=== PATIENT | female | born 1940 | race Two or more races ===

== ENCOUNTER 2016-11-13 21:10 | Inpatient (IN) | payer OTHER, MEDICAID ==
--- NOTE | 2016-11-13 21:35 | EDPHY ---
H & P Stated Complaint: FALL/WEAKNESS Time Seen by Provider: 11/13/16 21:35 HPI/ROS: CHIEF COMPLAINT: Fall, unable to get up HISTORY OF PRESENT ILLNESS: The patient presents to emergency department by paramedics. The patient reportedly had a fall at her home in the bathtub today. She was unable to get up. The patient eventually make contact with police who was able open the patient's apartment. She was too weak to transfer. 911 was contacted and she was brought to the ED. The patient complains of some mild headache. She does believe she struck her head. She denies neck pain. She denies any fever, cough, congestion, diarrhea, recent medication changes or other acute complaints. The patient has had a history of multiple falls over the past several weeks to months. The patient has had some evaluation of this condition by her primary care provider without an obvious etiology. REVIEW OF SYSTEMS: A comprehensive 10 point review of systems is otherwise negative aside from elements mentioned in the history of present illness. Source: Patient Exam Limitations: No limitations - Personal History Current Tetanus/Diphtheria Vaccine: Yes Current Tetanus Diphtheria and Acellular Pertussis (TDAP): Yes Tetanus Vaccine Date: 2009 - Medical/Surgical History Hx Asthma: No Hx Chronic Respiratory Disease: No Hx Diabetes: Yes Hx Cardiac Disease: No Hx Renal Disease: No Hx Cirrhosis: No Hx Alcoholism: No Hx HIV/AIDS: No Hx Splenectomy or Spleen Trauma: No Other PMH: Hyperthyroid, HTN, Tremors, Vertigo, Arthritis, HLD - Social History Smoking Status: Never smoked - Physical Exam Exam: General Appearance: Alert, no distress Head: Minimal occipital tenderness to palpation Eyes: Pupils equal, round, reactive ENT, Mouth: No hemotympanum, no oral trauma Neck: Nontender, trachea midline Respiratory: No chest wall tender, subcutaneous air, lungs clear bilaterally Cardiovascular: Regular rate and rhythm Abdomen: Abdomen is soft and nontender, pelvis stable Skin: No lacerations, No abrasion Back: No midline T/L/S pain Extremities: Nontender, full range of motion Neurological: A&Ox3, normal motor function, normal sensory exam Constitutional: Initial Vital Signs Temperature (C) 36.6 C 11/13/16 21:17 Heart Rate 82 11/13/16 21:17 Respiratory Rate 14 11/13/16 21:17 Blood Pressure 123/64 H 11/13/16 21:17 O2 Sat (%) 93 11/13/16 21:17 O2 Delivery Mode Room Air Allergies/Adverse Reactions: ciprofloxacin [From Cipro] Allergy (Severe, Verified 11/13/16 21:17) Rash ciprofloxacin HCl [From Cipro] Allergy (Severe, Verified 11/13/16 21:17) Rash Home Medications: Medication Instructions Recorded Amitriptyline HCl [Elavil 10 mg 20 mg PO HS 07/02/12 (RX)] Dexlansoprazole [Dexilant] 30 mg PO DAILY 07/02/12 Estropipate [Ogen 0.75 MG (RX)] 0.75 mg PO AD 07/02/12 Furosemide [Lasix 20 MG (RX)] 20 mg PO DAILY PRN 07/02/12 Gabapentin [Neurontin 300 MG (RX)] 300 mg PO HS 07/02/12 Levothyroxine [Synthroid 112 mcg 112 mcg PO DAILY06 07/02/12 (RX)] Losartan Potassium [Cozaar 25 mg 25 mg PO DAILY 07/02/12 (RX)] Audiovisual Aids Technician Completed 07-02-12 07/02/12 Propranolol HCl [Inderal 20mg (RX)] 20 mg PO HS 07/02/12 Simvastatin [Zocor 20 mg (RX)] 20 mg PO DAILY18 07/02/12 Solifenacin Succinate [Vesicare 5 5 mg PO DAILY8 07/02/12 MG (RX)] celeCOXIB [Celebrex (RX)] 200 mg PO DAILY 07/02/12 metFORMIN HCL [Glucophage 500 mg 500 mg PO BIDMEAL 07/02/12 (RX)] traMADol [Ultram 50 mg (RX)] 50 - 100 mg PO DAILY PRN 07/02/12 Herbals/Supplements -Info Only 1 each PO AD 07/04/12 Multivitamins [Multivitamin (OTC)] 1 each PO DAILY 07/04/12 [place]-3 Fatty Acids [Fish Oil 1000 1,000 mg PO DAILY 07/04/12 mg (OTC)] Medical Decision Making - Diagnostics EKG Interpretation: EKG: Complete interpretation has been separately recorded in the [facility] archive. Summary impression: Sinus rhythm, rate 80, nonspecific ST T wave changes noted. Imaging: Imaging Impressions Cervical Spine CT 11/13/16 22:23 Impression: 1. No acute fracture or soft tissue swelling. 2. If the patient has persistent pain or neurologic deficits, consider cervical spine MRI. Findings discussed with Emergency Department physician, Akhil Ocampo at 11/13/2016 22:50. Head CT 11/13/16 22:23 Impression: 1. No acute intracranial hemorrhage or fracture. 2. Subacute ischemic infarction of the right posterior temporal and parietal occipital lobes. Findings discussed with Emergency Department physician, Akhil Ocampo at 11/13/2016 22:52. Chest X-Ray 11/13/16 22:24 Impression: 1. Hypoventilation and airways disease. 2. Otherwise nothing acute. CT head without contrast: No evidence of intracranial hemorrhage noted, evidence of subacute right MCA infarct noted. CT cervical spine: Negative for acute fracture Chest x-ray AP: Images reviewed by myself, negative for acute fracture. ED Course/Re-evaluation: The patient presents to the ED with multiple episodes of falling. The patient denies any symptoms of focal numbness or weakness. Family reports if anything she seems to be weak in her right leg. The patient has had some workup done as an outpatient through the neurologist at [facility]. Today, the patient was taken for a stat CT scan of her head given her history of fall which demonstrates a subacute right MCA stroke. The patient has equal strength in her right left leg to my evaluation. She does have a very slight left facial droop. It is entirely unclear when the symptoms began. The patient is not a candidate for tPA based upon a number of reasons including her history of fall and head injury, as well as her unknown duration of the symptoms. The patient does have evidence of dehydration, there is no evidence of arrhythmia or obvious surgical injury. The patient will be admitted to the hospital for further evaluation of her falls , weakness and dehydration. I spoke with Dr. Camp who will admit the patient Differential Diagnosis: Differential diagnosis considered includes intracranial hemorrhage, skull fracture, stroke, TIA, metabolic abnormality, urinary tract infection - Data Points Laboratory Results: Laboratory Results 11/13/16 21:20 11/13/16 21:20 11/13/16 11/13/16 11/13/16 22: 21:25 21:20 WBC RBC Hgb Hct MCV MCH MCHC RDW Plt Count MPV Neut % (Auto) Lymph % (Auto) [place] % (Auto) Eos % (Auto) Baso % (Auto) Nucleat RBC Rel Count Absolute Neuts (auto) Absolute Lymphs (auto) Absolute Monos (auto) Absolute Eos (auto) Absolute Basos (auto) Absolute Nucleated RBC Immature Gran % Immature Gran # Sodium 137 mEq/L mEq/L (134-144) Potassium 4.1 mEq/L mEq/L (3.5-5.2) Chloride 106 mEq/L mEq/L (97-110) Carbon Dioxide 20 mEq/l L mEq/l (22-31) Anion Gap 11 mEq/L mEq/L (8-16) BUN 23 mg/dL mg/dL (7-23) Creatinine 0.8 mg/dL mg/dL (0.6-1.0) Estimated GFR > 60 Glucose 113 mg/dL H mg/dL (70-100) Calcium 9.2 mg/dL mg/dL (8.5-10.4) Creatine Kinase 758 IU/L H IU/L (0-156) CK-MB (CK-2) Fraction 3.95 ng/mL H ng/mL (0-3.19) CK-MB (CK-2) % 0.5 % % (0.0-4.0) Creatine Kinase Interp NEGATIVE (NEGATIVE) Urine Color YELLOW Urine Appearance HAZY Urine pH 5.0 (5.0-7.5) Ur Specific [place] 1.020 (1.002-1.030) Urine Protein 1+ H (NEGATIVE) Urine Ketones 2+ H (NEGATIVE) Urine Blood NEGATIVE (NEGATIVE) Urine Nitrate NEGATIVE (NEGATIVE) Urine Bilirubin NEGATIVE (NEGATIVE) Urine Urobilinogen NEGATIVE EU EU (0.2-1.0) Ur Leukocyte Esterase TRACE H (NEGATIVE) Urine RBC 1-3 /hpf /hpf (0-3) Urine WBC 25-50 /hpf H /hpf (0-3) Ur Epithelial Cells TRACE /lpf /lpf (NONE-1+) Urine Bacteria 1+ /hpf H /hpf (NONE SEEN) Urine Mucus 1+ /lpf /lpf (NONE-1+) Ur Culture Indicated? INDICATED H (NI) Urine Glucose NEGATIVE (NEGATIVE) 11/13/16 21:20 WBC 9.27 10^3/uL 10^3/uL (3.80-9.50) RBC 5.76 10^6/uL H 10^6/uL (4.18-5.33) Hgb 14.7 g/dL g/dL (12.6-16.3) Hct 45.1 % % (38.0-47.0) MCV 78.3 fL L fL (81.5-99.8) MCH 25.5 pg L pg (27.9-34.1) MCHC 32.6 g/dL g/dL (32.4-36.7) RDW 16.5 % H % (11.5-15.2) Plt Count 224 10^3/uL 10^3/uL (150-400) MPV 11.1 fL fL (8.7-11.7) Neut % (Auto) 78.1 % H % (39.3-74.2) Lymph % (Auto) 16.4 % % (15.0-45.0) [place] % (Auto) 4.9 % % (4.5-13.0) Eos % (Auto) 0.1 % L % (0.6-7.6) Baso % (Auto) 0.3 % % (0.3-1.7) Nucleat RBC Rel Count 0.0 % % (0.0-0.2) Absolute Neuts (auto) 7.24 10^3/uL H 10^3/uL (1.70-6.50) Absolute Lymphs (auto) 1.52 10^3/uL 10^3/uL (1.00-3.00) Absolute Monos (auto) 0.45 10^3/uL 10^3/uL (0.30-0.80) Absolute Eos (auto) 0.01 10^3/uL L 10^3/uL (0.03-0.40) Absolute Basos (auto) 0.03 10^3/uL 10^3/uL (0.02-0.10) Absolute Nucleated RBC 0.00 10^3/uL 10^3/uL (0-0.01) Immature Gran % 0.2 % % (0.0-1.1) Immature Gran # 0.02 10^3/uL 10^3/uL (0.00-0.10) Sodium Potassium Chloride Carbon Dioxide Anion Gap BUN Creatinine Estimated GFR Glucose Calcium Creatine Kinase CK-MB (CK-2) Fraction CK-MB (CK-2) % Creatine Kinase Interp Urine Color Urine Appearance Urine pH Ur Specific [place] Urine Protein Urine Ketones Urine Blood Urine Nitrate Urine Bilirubin Urine Urobilinogen Ur Leukocyte Esterase Urine RBC Urine WBC Ur Epithelial Cells Urine Bacteria Urine Mucus Ur Culture Indicated? Urine Glucose Medications Given: Discontinued Medications Sodium Chloride (Ns) 1,000 mls @ 0 mls/hr IV ONCE ONE PRN Reason: Wide Open Stop: 11/13/16 21:37 Last Admin: 11/13/16 21:55 Dose: 1,000 mls Sodium Chloride (Ns) 1,000 mls @ 0 mls/hr IV ONCE ONE PRN Reason: Wide Open Stop: 11/13/16 21:58 Last Admin: 11/13/16 22:28 Dose: 1,000 mls Departure - Departure Disposition: [facility] Inpatient Acute Clinical Impression: Arterial ischemic stroke, chronic, Dehydration, Urinary tract infection Referrals: Patient,NotPresent [Unknown] - As per Instructions
[2016-11-13] MEDS ORDERED: NS 1,000 ML IV ONE ×2 (21:36→21:57)
[2016-11-13 21:41] LABS: % IMMATURE GRANULYOCYTES 0.2 % (0.0-1.1); ABSOLUTE IMMATURE GRANULOCYTES 0.02 10^3/uL (0.00-0.10); ADD DIFF? NO; ADD MORPH? NO; ADD SCAN? NO; ATYPICAL LYMPHOCYTE FLAG 0 (0-99); FRAGMENT RBC FLAG 0 (0-99); HEMATOCRIT 45.1 % (38.0-47.0); HEMOGLOBIN 14.7 g/dL (12.6-16.3); LEFT SHIFT FLG 0 (0-99); LIPEMIA HEMOLYSIS FLAG 80 (0-99); MEAN CELL HEMOGLOBIN 25.5 pg (27.9-34.1); MEAN CELL HEMOGLOBIN CONCENTR. 32.6 g/dL (32.4-36.7); MEAN CELL VOLUME 78.3 fL (81.5-99.8); MEAN PLATELET VOLUME 11.1 fL (8.7-11.7); PLATELET CLUMPS FLAG 20 (0-99); PLATELET COUNT 224 10^3/uL (150-400); RED BLOOD CELL COUNT 5.76 10^6/uL (4.18-5.33); RED CELL DISTRIBUTION WIDTH 16.5 % (11.5-15.2)
[2016-11-13 21:51] LABS: ANION GAP 11 mEq/L (8-16); CALCIUM 9.2 mg/dL (8.5-10.4); CARBON DIOXIDE 20 mEq/l (22-31); CHLORIDE 106 mEq/L (97-110); CREATININE 0.8 mg/dL (0.6-1.0); GLOMERULAR FILTRATION RATE > 60; GLUCOSE 113 mg/dL (70-100); POTASSIUM 4.1 mEq/L (3.5-5.2); SODIUM 137 mEq/L (134-144)
--- NOTE | 2016-11-13 21:53 | CPEKG ---
Heart Rate: 153 RR Interval: 392 QRSD Interval: 208 QTC Interval: 0 P Ledbetter: 0 QRS Ledbetter: 156 EKG Severity - ABNORMAL ECG - EKG Impression: UNDETERMINED RHYTHM: REVIEW EKG Impression: NONSPECIFIC INTRAVENTRICULAR CONDUCTION DELAY Electronically Signed By: Akhil Ocampo 13-Nov-2016 23:07:03
[2016-11-13 22:30] LABS: COLOR YELLOW; LEUKOCYTE ESTERASE,URINE TRACE (NEGATIVE); NITRITE,URINE NEGATIVE (NEGATIVE)
[2016-11-13 22:40] LABS: BACTERIA 1+ /hpf (NONE SEEN); MUCUS 1+ /lpf (NONE-1+); WBC,URINE 25-50 /hpf (0-3)
[2016-11-13 22:56] LABS: CK-MB INTERPRETATION NEGATIVE (NEGATIVE)
[2016-11-13 22:57] LABS: CREATINE KINASE-MB FRACTION 3.95 ng/mL (0-3.19)
[2016-11-13] MEDS ORDERED: ONDANSETRON 4 MG/2 ML VIAL IVP PRN (23:39)
[2016-11-13] MEDS ORDERED: ONDANSETRON DISINTEGRATING 4 MG TAB PO PRN (23:39)
[2016-11-13] MEDS ORDERED: HYDROmorphONE/DILAUDID 1 MG/ML SYR IVP PRN (23:39)
[2016-11-13] MEDS ORDERED: IOPAMIDOL (ISOVUE 370) 100 ML BTL IV ONE (23:50)
--- NOTE | 2016-11-14 00:44 | PDGENHP ---
History and Physical - Chief Complaint fall - History of Present Illness Patient is a 76 year old female with hypertension, hyperlipidemia, pre-DM2, obesity, hypothyroidism and recent disequilibrium/vertigo of unclear etiology who present to the ED with fall and generalized weakness. Patient has been suffering from disequilibrium-type symptoms for the past several months, for which she has undergone an outpatient work up that has been largely unrevealing (per patient), she has been prescribed meclizine with little improvement. About 1 week ago, patient had an acute fall due to weakness, for which she did not come to the ED for further evaluation. She denies any residual weakness, numbness after that fall. This morning, the patient was in her shower when she reports she slipped on the soap in the tub and fell down. She denies LOC, but does report head trauma on the side of the tub. She was noted some L knee pain. After falling, she was unable to lift herself up due to weakness, trying unsuccessfully for several hours. She lives alone and had been yelling out for help, when a neighbor was able to hear her this evening and called the police. Patient denies any chest pain, palpitations or lightheadedness associated with the fall. When EMS arrived patient was lifted out of her bathtub and transported to the [facility] ED. On arrival to the ED, patient was afebrile and hemodynamically stable, saturating well on room air. Labs revealed largely normal CBC and BMP, mildly elevated CK. UA was positive for signs of infection. CT head was obtained and showed no acute intracranial hemorrhage, but there was evidence for subacute R parietal infarct of undetermined age. CXR was unremarkable and EKG showed normal sinus rhythm. History Information - Allergies/Home Medication List Allergies/Adverse Reactions: ciprofloxacin [From Cipro] Allergy (Severe, Verified 11/13/16 21:17) Rash ciprofloxacin HCl [From Cipro] Allergy (Severe, Verified 11/13/16 21:17) Rash Home Medications: Amitriptyline HCl [Elavil 10 mg (RX)] 20 mg PO HS 07/02/12 [Last Taken 07/08/12 19:00] Dexlansoprazole [Dexilant] 30 mg PO DAILY 07/02/12 [Last Taken 07/09/12 06:30] Estropipate [Ogen 0.75 MG (RX)] 0.75 mg PO AD 07/02/12 [Last Taken 07/09/12 06: 30] Furosemide [Lasix 20 MG (RX)] 20 mg PO DAILY PRN 07/02/12 [Last Taken 07/08/12 07:00] Gabapentin [Neurontin 300 MG (RX)] 300 mg PO HS 07/02/12 [Last Taken 07/08/12 19 :00] Levothyroxine [Synthroid 112 mcg (RX)] 112 mcg PO DAILY06 07/02/12 [Last Taken 07/09/12 06:30] Losartan Potassium [Cozaar 25 mg (RX)] 25 mg PO DAILY 07/02/12 [Last Taken 07/09 06:30] Fuller Brush Man Completed 07-02-12 07/02/12 [Last Taken Unknown] Propranolol HCl [Inderal 20mg (RX)] 20 mg PO HS 07/02/12 [Last Taken 07/08/12 19 :00] Simvastatin [Zocor 20 mg (RX)] 20 mg PO DAILY18 07/02/12 [Last Taken 07/08/12 19 :00] Solifenacin Succinate [Vesicare 5 MG (RX)] 5 mg PO DAILY8 07/02/12 [Last Taken 07/08/12 19:00] celeCOXIB [Celebrex (RX)] 200 mg PO DAILY 07/02/12 [Last Taken 07/09/12 06:30] metFORMIN HCL [Glucophage 500 mg (RX)] 500 mg PO BIDMEAL 07/02/12 [Last Taken 06:30] traMADol [Ultram 50 mg (RX)] 50 - 100 mg PO DAILY PRN 07/02/12 [Last Taken 07/09 06:30] Herbals/Supplements -Info Only 1 each PO AD 07/04/12 [Last Taken Unknown] Multivitamins [Multivitamin (OTC)] 1 each PO DAILY 07/04/12 [Last Taken 07:00] [place]-3 Fatty Acids [Fish Oil 1000 mg (OTC)] 1,000 mg PO DAILY 07/04/12 [Last Taken 06/30/12 07:00] I have personally reviewed and updated: family history, medical history, social history, surgical history - Past Medical History Additional medical history: hypertension. hyperlipidemia. hypothyroidism. GERD. resting tremor. vertigo. osteoarthritis. overactive bladder - Surgical History Additional surgical history: L hip replacement. R shoulder repair. bladder sling - Family History Additional family history: Brothers, father: CVAs. DM2, CAD - Social History Smoking Status: Never smoked Alcohol Use: None Drug Use: None Additional social history: Patient currently lives alone, walks independently. She has a son and multiple other family members in the area who are very involved in her care. Review of Systems ROS: 10pt was reviewed & negative except for what was stated in HPI & below Physical Exam Temp Pulse Resp BP Pulse Ox 36.8 C 85 18 154/80 H 93 11/13/16 23:14 11/13/16 23:14 11/13/16 23:14 11/13/16 23:14 11/13/16 23:14 Constitutional: no apparent distress, appears nourished, obese, uncomfortable Eyes: PERRL, anicteric sclera, EOMI Ears, Nose, Mouth, Throat: moist mucous membranes, hearing normal, ears appear normal, no oral mucosal ulcers Cardiovascular: regular rate and rhythym, no murmur, rub, or gallop, pulses symmetric bilaterally, No JVD, No edema Peripheral Pulses: 2+: dorsalis-pedis (R), dorsalis-pedis (L) Respiratory: no respiratory distress, no rales or rhonchi, clear to auscultation Gastrointestinal: normoactive bowel sounds, soft, non-tender abdomen, no palpable masses, No guarding, No rebound Genitourinary: no bladder fullness, no bladder tenderness Skin: warm, normal color, no rashes or abrasions, no fluctuance, no induration, No mottled Musculoskeletal: full muscle strength, no muscle tenderness, normal joint ROM, no joint effusions, generalized weakness (nonfocal) Neurologic: AAOx3, sensation intact bilaterally, CN II-XII Intact, No weakness, No numbness, No pronator drift, No facial droop Psychiatric: interacting appropriately, not anxious, not encephalopathic, thought process linear Lab Data & Imaging Review 11/13/16 21:20 11/13/16 21:20 WBC 9.27 10^3/uL (3.80-9.50) 11/13/16 21:20 RBC 5.76 10^6/uL (4.18-5.33) H 11/13/16 21:20 Hgb 14.7 g/dL (12.6-16.3) 11/13/16 21:20 Hct 45.1 % (38.0-47.0) 11/13/16 21:20 MCV 78.3 fL (81.5-99.8) L 11/13/16 21:20 MCH 25.5 pg (27.9-34.1) L 11/13/16 21:20 MCHC 32.6 g/dL (32.4-36.7) 11/13/16 21:20 RDW 16.5 % (11.5-15.2) H 11/13/16 21:20 Plt Count 224 10^3/uL (150-400) 11/13/16 21:20 MPV 11.1 fL (8.7-11.7) 11/13/16 21:20 Neut % (Auto) 78.1 % (39.3-74.2) H 11/13/16 21:20 Lymph % (Auto) 16.4 % (15.0-45.0) 11/13/16 21:20 [place] % (Auto) 4.9 % (4.5-13.0) 11/13/16 21:20 Eos % (Auto) 0.1 % (0.6-7.6) L 11/13/16 21:20 Baso % (Auto) 0.3 % (0.3-1.7) 11/13/16 21:20 Nucleat RBC Rel Count 0.0 % (0.0-0.2) 11/13/16 21:20 Absolute Neuts (auto) 7.24 10^3/uL (1.70-6.50) H 11/13/16 21:20 Absolute Lymphs (auto) 1.52 10^3/uL (1.00-3.00) 11/13/16 21:20 Absolute Monos (auto) 0.45 10^3/uL (0.30-0.80) 11/13/16 21:20 Absolute Eos (auto) 0.01 10^3/uL (0.03-0.40) L 11/13/16 21:20 Absolute Basos (auto) 0.03 10^3/uL (0.02-0.10) 11/13/16 21:20 Absolute Nucleated RBC 0.00 10^3/uL (0-0.01) 11/13/16 21:20 Immature Gran % 0.2 % (0.0-1.1) 11/13/16 21:20 Immature Gran # 0.02 10^3/uL (0.00-0.10) 11/13/16 21:20 Sodium 137 mEq/L (134-144) 11/13/16 21:20 Potassium 4.1 mEq/L (3.5-5.2) 11/13/16 21:20 Chloride 106 mEq/L (97-110) 11/13/16 21:20 Carbon Dioxide 20 mEq/l (22-31) L 11/13/16 21:20 Anion Gap 11 mEq/L (8-16) 11/13/16 21:20 BUN 23 mg/dL (7-23) 11/13/16 21:20 Creatinine 0.8 mg/dL (0.6-1.0) 11/13/16 21:20 Estimated GFR > 60 11/13/16 21:20 Glucose 113 mg/dL (70-100) H 11/13/16 21:20 Calcium 9.2 mg/dL (8.5-10.4) 11/13/16 21:20 Creatine Kinase 758 IU/L (0-156) H 11/13/16 21:25 CK-MB (CK-2) Fraction 3.95 ng/mL (0-3.19) H 11/13/16 21:25 CK-MB (CK-2) % 0.5 % (0.0-4.0) 11/13/16 21:25 Creatine Kinase Interp NEGATIVE (NEGATIVE) 11/13/16 21:25 Urine Color YELLOW 11/13/16 22:17 Urine Appearance HAZY 11/13/16 22:17 Urine pH 5.0 (5.0-7.5) 11/13/16 22:17 Ur Specific [place] 1.020 (1.002-1.030) 11/13/16 22:17 Urine Protein 1+ (NEGATIVE) H 11/13/16 22:17 Urine Ketones 2+ (NEGATIVE) H 11/13/16 22:17 Urine Blood NEGATIVE (NEGATIVE) 11/13/16 22:17 Urine Nitrate NEGATIVE (NEGATIVE) 11/13/16 22:17 Urine Bilirubin NEGATIVE (NEGATIVE) 11/13/16 22:17 Urine Urobilinogen NEGATIVE EU (0.2-1.0) 11/13/16 22:17 Ur Leukocyte Esterase TRACE (NEGATIVE) H 11/13/16 22:17 Urine RBC 1-3 /hpf (0-3) 11/13/16 22:17 Urine WBC 25-50 /hpf (0-3) H 11/13/16 22:17 Ur Epithelial Cells TRACE /lpf (NONE-1+) 11/13/16 22:17 Urine Bacteria 1+ /hpf (NONE SEEN) H 11/13/16 22:17 Urine Mucus 1+ /lpf (NONE-1+) 11/13/16 22:17 Ur Culture Indicated? INDICATED (NI) H 11/13/16 22:17 Urine Glucose NEGATIVE (NEGATIVE) 11/13/16 22:17 Visualized and Interpreted Chest x-ray results: Yes Chest X-Ray results: no infiltrate, normal Visualized and Interpreted imaging results: Yes Interpretation: CT head: subacute infarct in the R pariatal-occipital area; no acute hemorrhage or edema Visualized and Interpreted EKG results: Yes EKG Interpretation: Positive for: normal sinsus rhythm EKG additional interpertation: TWI in lateral leads Assessment & Plan Assessment: Patient is a 76 year old female with hypertension, hyperlipidemia, hypothyroidism who presents to the ED with recurrent falls, today falling in her bathtub and was unable to get up. ED evaluation reveals CT showing evidence of a subacute/chronic R cerebral infarct, as well as acute UTI. Plan: # fall Today's fall sounds to have been mechanical in nature, associated with generalized weakness. Weakness could be related to subacute infarct, uti. Will also rule out ACS, arrhythmia with serial troponins and EKGs. CT head and c- spine have ruled out acute fractures or hemorrhage. Labs show only mild CK elevation despite being down for > 7 hours. Patient also complaining of L knee pain, so will check x-ray. Will also obtain PT/OT evaluation prior to discharge. # subacute R parietal infarct CT findings are not acute in nature and patient does report that about 1 week ago she had an acute event of weakness that resulted in a fall. This could be the time of her cerebral event. On presentation today, patient is not a tPA candidate due to presenting outside window. Will check CT angio head/neck, TTE, monitor telemetry for arrhythmia and monitor neuro status. Will also obtain Neuro consult, check TSH, lipid panel. # UTI Patient does not meet SIRS/sepsis criteria, but UA is positive. Given L shift on cbc and patient's complaint of generalized weakness, will treat for UTI with ceftriaxone. # hypertension, hyperlipidemia BP stable on presentation. Will confirm and continue homemeds. # hypothyroidism Check TSH, cont home synthroid # pre-DM2 Hold metformin, check FS and cover with sliding scale as needed. # dispo: admit to the inpatient service for presumed > 2 [place] stay for stroke work up, treatment of UTI and fall symptoms # gen: cardiac diet DVT ppx: lovenox Full code
[2016-11-14] MEDS: oxyCODONE IR 5 MG TAB PO PRN ×2 (01:12→06:02)
[2016-11-14] MEDS: ACETAMINOPHEN 500 MG TAB PO PRN (01:12)
[2016-11-14 04:42] LABS: % IMMATURE GRANULYOCYTES 0.1 % (0.0-1.1); ABSOLUTE IMMATURE GRANULOCYTES 0.01 10^3/uL (0.00-0.10); ADD DIFF? NO; ADD MORPH? NO; ADD SCAN? NO; ATYPICAL LYMPHOCYTE FLAG 0 (0-99); FRAGMENT RBC FLAG 0 (0-99); HEMATOCRIT 40.5 % (38.0-47.0); HEMOGLOBIN 13.1 g/dL (12.6-16.3); LEFT SHIFT FLG 0 (0-99); LIPEMIA HEMOLYSIS FLAG 80 (0-99); MEAN CELL HEMOGLOBIN 25.8 pg (27.9-34.1); MEAN CELL HEMOGLOBIN CONCENTR. 32.3 g/dL (32.4-36.7); MEAN CELL VOLUME 79.9 fL (81.5-99.8); MEAN PLATELET VOLUME 10.8 fL (8.7-11.7); PLATELET CLUMPS FLAG 0 (0-99); PLATELET COUNT 180 10^3/uL (150-400); RED BLOOD CELL COUNT 5.07 10^6/uL (4.18-5.33); RED CELL DISTRIBUTION WIDTH 16.2 % (11.5-15.2)
[2016-11-14 04:59] LABS: ANION GAP 7 mEq/L (8-16); CALCIUM 8.2 mg/dL (8.5-10.4); CARBON DIOXIDE 21 mEq/l (22-31); CHLORIDE 107 mEq/L (97-110); CHOLESTEROL 149 mg/dL (140-220); CHOLESTEROL/HDL RATIO 3.82 RATIO (1.00-4.44); CREATININE 0.7 mg/dL (0.6-1.0); GLOMERULAR FILTRATION RATE > 60; GLUCOSE 102 mg/dL (70-100); HIGH DENSITY LIPOPROTEIN 39 mg/dL (40-85); LOW DENSITY LIPOPROTEIN 82 mg/dL (80-100); MAGNESIUM 1.7 mg/dL (1.6-2.3); NON-HIGH DENSITY LIPOPROTEIN 110 mg/dL (90-129); POTASSIUM 3.8 mEq/L (3.5-5.2); SODIUM 135 mEq/L (134-144); TRIGLYCERIDE 141 mg/dL (35-135); VERY LOW DENSITY LIPOPROTEINS 28 mg/dL (8-25)
[2016-11-14 05:07] LABS: APTT 31.9 SEC (23.0-38.0); INR 1.11 (0.83-1.16); PROTIME(PATIENT) 14.2 SEC (12.0-15.0)
[2016-11-14 05:10] LABS: TROPONIN I < 0.012 ng/mL (0-0.034)
[2016-11-14] MEDS ORDERED: PROTOCOL MAGNESIUM 1 DOSE IV PRN (05:33)
[2016-11-14] MEDS ORDERED: PROTOCOL POTASSIUM 1 DOSE MISC PRN (05:33)
[2016-11-14 05:43] LABS: CK-MB INTERPRETATION NEGATIVE (NEGATIVE)
[2016-11-14 05:44] LABS: CREATINE KINASE-MB FRACTION 4.37 ng/mL (0-3.19)
[2016-11-14] MEDS ORDERED: NS 1,000 ML IV SCH (05:45)
[2016-11-14] MEDS ORDERED: POTASSIUM CL 10 MEQ TAB PO ONE ×2 (07:35→10:00)
[2016-11-14] MEDS ORDERED: MAGNESIUM SULF 1 GM/DEXTROSE 100 ML IV ONE ×2 (07:36→10:00)
[2016-11-14] MEDS ORDERED: D50W 25 GM/50 ML SYR IVP PRN (07:51)
--- NOTE | 2016-11-14 08:52 | PDCONSULT ---
Service Or Work Dispatcher Note: HOSPITAL NEUROLOGY CONSULT REQUESTING: Kiara Ta DO REASON: stroke HPI: This is a 76-year-old right-handed woman with a history of hypertension, hyperlipidemia, impaired fasting glucose, obstructive sleep apnea on nightly CPAP who presented to our emergency department yesterday evening due to a fall with the inability to get up thereafter. Patient states that for the past 3-4 days she has been having unprovoked falls in her home. She states that she is normally able to ambulate independently without any assistive devices. She states that it felt like someone is pushing her abruptly from behind and she would fall. She did not have any major injury. On the day of presentation, the patient was in her bathroom taking a bath when she states she slipped and fell in the tub was unable to get up. She started screaming for help and eventually a neighbor heard her and summoned EMS to her residence. On arrival to our emergency department, the patient was not noted to have any focal deficit. A CT of the head was obtained which revealed a subacute infarct in the right temporoparietal region consistent with a subacute ischemic stroke in the superior division of the right MCA. She was not a thrombolytic/intervention candidate due to the presence of infarct already apparent on CT. Lab investigations revealed rhabdomyolysis and a urinalysis questionable for a urinary tract infection. She had a CT of the cervical spine which was negative. Patient denies any prior history of stroke or TIA. Patient denies any weakness, sensory loss, visual disturbance, speech/ language disturbance, headache. She has chronic vertigo. She denies any chest pain, palpitations or shortness of breath. ROS: As per the HPI, otherwise a complete 12 point ROS was performed and is negative ALLERGIES AND MEDS: As recorded in the EMR - reviewed and reconciled PFSH: As per the intake H&P by Dr. Ta from today EXAM: VS reviewed in EMR GEN: WDWN laying in NAD HEENT: NCAT, sclera anicteric, conjunctiva not injected, MMM, oropharynx clear, no scalp tenderness NECK: supple, nontender, no meningismus CV: RRR s1 s2 wo m/r/c/g. Carotid pulses 2+ wo bruit NEURO: NIHSS 5 (2 VF, 2 sensory, 1 inattention) MS: awake, alert, oriented to self, place, month, year, not specific date. Speech nondysarthric. No language disturbance. Follows commands. Some intermittent left-sided neglect when prompted to use the LUE. Recent/remote memory grossly intact. Mood euthymic. Good fund of knowledge. Dyspraxia when mimicking hand gestures L>R. CN: pupils 3mm round and reactive. Fundi with sharp discs. Left homonymous hemianopia. Primary gaze centered. Full ocular motility, though smooth pursuit with saccadic intrusion and motor impersistence. Left hemifacial sensory loss. Face symmetric. Hearing grossly intact to finger rub. Palatoglossal movements intact. Shoulder shrug and head turn strong. MOTOR: normal bulk/tone. No adventitial movements. Very subtle UMN pattern of weakness in LUE and left hip flexion/knee flexion. SENSORY: diminished sensation in LUE/LLE. Unable to differentiate extinction due to hemisensory loss. COORD: no ataxia FN/HS. Remigio labored. REFLEX: plantar extensor left, equivocal right. No clonus. Absent DTRs ( activating). GAIT: deferred to PT safety eval DATA REVIEW: Labs reviewed in EMR LDL 82 A1c pending TTE pending PERSONALLY INTERPRETED RESULTS AND DATA: CT head wo 11/13 - wedge shaped area of hypodensity consistent with cytotoxic edema/subacute ischemic stroke in the right posterior temporal and right parietal regions CTA head/neck 11/13 - no large vessel stenosis or occlusive disease. She does seem to have collateral flow in the area of infarct. IMPRESSION AND RECOMMENDATIONS: // SUBACUTE ISCHEMIC STROKE // HTN // HLD // IFG // MANDA // FALL WITH RHABDOMYOLYSIS Patient presents with 3-4 days new unprovoked falls in the setting a subacute right MCA stroke. She currently demonstrates deficits left homonymous hemianopia, left obed sensory loss, trace left-sided weakness and dyspraxia moreso on the left. This is consistent with her stroke localization on CT. Given the absence of large vessel disease in the right carotid system, this large RMCA stroke invokes a mechanism of more proximal embolization, that is, cardioembolism. She does seem to have decent collateral flow in the area of infarct on CTA, which may account for her degree of symptoms in comparison to infarct size. - MRI brain wo today - TTE with bubble study today - ASA 325mg daily - goal normotension - f/u HgA1c with goal normoglycemia and long-term A1c < 6.5 - restart higher intensity statin therapy for goal LDL < 70 once her rhabdomyolysis has resolved - CPAP at night for MANDA - hypoventilation/CO2 retention may cause worsening of symptoms (ie reverse [place] syndrome) - monitor on tele - may need 30d Holter vs Linq pending MRI result - PT/OT/CAR PARKER consults - stroke education - GI and DVT prophylaxis per primary team - will need STR at d/c given her deficits and prior functional status
--- NOTE | 2016-11-14 09:14 | CPEKG ---
Heart Rate: 71 RR Interval: 845 P-R Interval: 148 QRSD Interval: 86 QT Interval: 384 QTC Interval: 418 P [place]: 46 QRS [place]: 91 T Wave [place]: 153 EKG Severity - ABNORMAL ECG - EKG Impression: SINUS RHYTHM EKG Impression: RIGHT AXIS DEVIATION EKG Impression: NONSPECIFIC T ABNORMALITIES, ANT-LAT LEADS Electronically Signed By: Jesus Frazier 14-Nov-2016 15:29:25
[2016-11-14] MEDS: ASPIRIN EC 325 MG TAB PO SCH (10:11)
[2016-11-14] MEDS: ENOXAPARIN 40 MG/0.4 ML SYR SC SCH (10:11)
[2016-11-14] MEDS: INSULIN LISPRO 100 UNIT/ML SC SCH ×3 (10:14→19:48)
--- NOTE | 2016-11-14 10:49 | ECHO ---
[id number] + + [address] : : [place] [address] : : [phone] + + Adult Echocardiographic Report + ------+ :Name: SOHAIL FISH JStudy Date: 11/14/2016 09:38 AM : : Hospital Admission Number: [id number] : :: 1940 Gender: Female Height: 65 in : :Age: 76 yrs Race: [facility] Weight: 18 3 lb : :Reason For Study: Ischemic stroke : : BSA: 1.9 m eters2: + ------+ MMode/2D Measurements \T\ Calculations LVIDd: 4.5 cm EDV(Teich): 94.7 ml Ao root diam: 3.2 cm LA dimension: 3.6 cm Normal Measurement Values: + + :LVIDd (3.5-5.7cm) IVSd (0.6-1.1cm) LVPWd (0.6-1.1cm) Aortic Root (2.0-3.7cm)Left Atrium (1.5-4.0cm): :LV Vol(d) (76-115ml) LV Vol(s) (29-48ml) Ejec Fraction (50-65%)PV Shan (0.6- 1.2m/s) TV Shan (0.4-1.0m/s) : :MV E Shan (0.8-1.0m/s)MV A Shan (0.3-1.0m/s)LVOT Shan (0.7-1.2m/s) Asc Ao Shan ( 0.9-1.8m/s) : + + Doppler Measurements \T\ Calculations Ao V2 max: 116.7 cm/sec Ao max P.5 mmHg Left Ventricle The left ventricle is normal in size. There is mild concentric left ventricular hypertrophy. Left ventricular systolic function is normal. Ejection Fraction = 70-75%. No regional wall motion abnormalities noted. Right Ventricle The right ventricle is normal in size and function. Atria The left atrial size is normal. Right atrial size is normal. The interatrial septum is intact with no evidence for an atrial septal defect. Mitral Valve The mitral valve is normal in structure and function. There is no evidence of mitral valve prolapse. There is no mitral valve stenosis. There is trace mitral regurgitation. Tricuspid Valve Normal tricuspid valve. Aortic Valve The aortic valve opens well. There is no aortic stenosis. There is no aortic insufficiency. Pulmonic Valve The pulmonic valve is not well visualized. There is no pulmonic valvular regurgitation. Great Vessels The aortic root is normal size. Pericardium/Pleural There is no pericardial effusion. There is a fat pad seen. Conclusion A complete two-dimensional transthoracic echocardiogram was performed (2D, M-mode, Doppler and color flow Doppler). The study was technically difficult. Left ventricular systolic function is normal. There is mild concentric left ventricular hypertrophy. Ejection Fraction = 70-75%. There is trace mitral regurgitation. There is a fat pad seen. Final Reading Physician: Ryley Bustos signed on 11/14/2016 10:48 AM Performed By: Lisbeth Wilder RDCS
[2016-11-14 10:59] LABS: HEMOGLOBIN A1C 6.1 % (4.0-6.0)
[2016-11-14] MEDS ORDERED: FUROSEMIDE 20 MG TAB PO PRN (12:49)
--- NOTE | 2016-11-14 16:28 | HOSPPROG ---
Hospitalist Progress Note Assessment/Plan: 76 yo F with PMH of htn, hld, pre dm pw fall and dysequilibrium for several weeks in setting of uti and subacute cva # subacute cva: on personal review of head CT subacute infarct in parietal and temporal right sided, not tpa candidate given timing, CTA head and neck performed showing small m2 thrombus, brain MRI pending. Has a family hx of a fib , monitoring on tele, echo unremarkable, neuro following. Cardioembolic source very possible, will need holter after dc. Full dose asa for now. PT/OT involved # UTI: treating with ctx for now, preliminary culture c/w likely e coli, will transition to oral abx when s/s available # weakness/dysequilibrium: in setting of above as well as generalized deconditioning. Discussed with family who will take her home with them for the time being. Again pt/ot involved, home health at dc # hld: given cva, will switch from low dose simvastatin to atorvastatin 40, LDL 82 # htn: well conrolled, continue lasix, losartan # dm: with A1c of 6.1, well controlled on current regimen # dispo: IP status, will need > 48 hours stay for eval/mgmt of above Patient new to my care. Old records reviewed and summarized as above. Care plan reviewed with family present at bedside. Subjective: no significant overnight events, patient currently feeling well, she is somnolent Objective: Vital Signs Temp Pulse Resp BP Pulse Ox 36.8 C 76 20 140/74 H 94 11/14/16 16:05 11/14/16 16:05 11/14/16 16:05 11/14/16 16:05 11/14/16 16:05 Laboratory Results 11/14/16 04:30 11/14/16 04:30 11/13/16 11/14/16 11/15/16 05:59 05:59 05:59 Intake Total 2000 Output Total 850 550 Balance 1150 -550 PT 14.2 SEC (12.0-15.0) 11/14/16 04:30 INR 1.11 (0.83-1.16) 11/14/16 04:30 awake alert nad anicteric op clear rrr no mrg cta soft nt nd no cce warm dry well perfused somnolent arousable oriented appropriate ICD10 Worksheet Patient Problems: Problems Problem Status Onset Arterial ischemic stroke, chronic Acute Dehydration Acute Urinary tract infection Acute
[2016-11-14 19:03] LABS: POTASSIUM 4.3 mEq/L (3.5-5.2)
[2016-11-14] MEDS ORDERED: PRAVASTATIN SODIUM 20 MG TAB PO SCH (21:00)
[2016-11-14] MEDS: traMADol 50 MG TAB PO PRN (21:16)
[2016-11-14] MEDS: AMITRIPTYLINE HCL 10 MG TAB PO SCH (21:16)
[2016-11-14] MEDS: PROPRANOLOL HCL 20 MG TAB PO SCH (21:17)
[2016-11-15] MEDS: LEVOTHYROXINE 112 MCG TAB PO SCH (05:48)
[2016-11-15] MEDS: traMADol 50 MG TAB PO PRN (05:48)
[2016-11-15 06:22] LABS: MAGNESIUM 2.1 mg/dL (1.6-2.3); POTASSIUM 4.1 mEq/L (3.5-5.2)
[2016-11-15] MEDS: INSULIN LISPRO 100 UNIT/ML SC SCH ×3 (07:58→17:48)
[2016-11-15] MEDS: ATORVASTATIN CALCIUM 40 MG TAB PO SCH (08:28)
[2016-11-15] MEDS: ASPIRIN EC 325 MG TAB PO SCH (08:28)
[2016-11-15] MEDS: LOSARTAN POTASSIUM 25 MG TAB PO SCH (08:28)
[2016-11-15] MEDS: ESTRADIOL 1 MG TAB PO SCH (08:28)
[2016-11-15] MEDS: DOCUSATE SODIUM 100 MG CAP PO SCH (08:28)
[2016-11-15] MEDS: OXYBUTYNIN 5 MG EXT REL TAB PO SCH (08:29)
[2016-11-15] MEDS: ENOXAPARIN 40 MG/0.4 ML SYR SC SCH (08:29)
[2016-11-15] MEDS: PANTOPRAZOLE SODIUM 40 MG TAB PO SCH (08:29)
[2016-11-15] MEDS ORDERED: MECLIZINE HCL 12.5 MG TAB PO SCH (09:00)
[2016-11-15] MEDS ORDERED: NON-FORMULARY NEW DRUG (Omeprazole [Prilosec 20 Mg] 40 MG) PO SCH (09:00)
[2016-11-15] MEDS: ACETAMINOPHEN 500 MG TAB PO PRN (11:53)
[2016-11-15] MEDS: oxyCODONE IR 5 MG TAB PO PRN (11:54)
--- NOTE | 2016-11-15 13:05 | HOSPPROG ---
Hospitalist Progress Note Assessment/Plan: 76 yo F with PMH of htn, hld, pre dm pw fall and dysequilibrium for several weeks in setting of uti and subacute cva # subacute cva: on personal review of head CT subacute infarct in parietal and temporal right sided, not tpa candidate given timing, CTA head and neck performed showing small m2 thrombus, brain MRI showing same without any other findings. Echo unremarkable, no events on tele thus far. For now tx with full dose asa, will need to dc with holter monitor. # UTI: barton sensitive e coli on culture, will transition to keflex with a plan to continue x 10 days for presumed complicated uti # acute encephalopathy: with significant somnolence and confusion initially that has now resolved, likely initial encephalopathy due to combination of cva/ uti and medication effect (was given meclizine yesterday which was a home med she had discontinued) # weakness/dysequilibrium: in setting of above as well as generalized deconditioning. Improving, will continue pt/ot and dc to snf # hld: given cva, will switch from low dose simvastatin to atorvastatin 40, LDL 82 # htn: well conrolled, continue lasix, losartan # dm: with A1c of 6.1, well controlled on current regimen # dispo: IP status, will need > 48 hours stay for eval/mgmt of above Care plan reviewed with family present at bedside. Reviewed care plan with CM. Subjective: no significant overnight events, patient much more alert today, feels that she is more steady on her feet Objective: Vital Signs Temp Pulse Resp BP Pulse Ox 37.0 C 66 13 123/71 H 94 11/15/16 11:41 11/15/16 11:41 11/15/16 11:41 11/15/16 11:41 11/15/16 11:41 Laboratory Results 11/14/16 04:30 11/15/16 05:05 11/14/16 11/15/16 11/16/16 05:59 05:59 05:59 Intake Total 2000 1500 90 Output Total 850 1000 150 Balance 1150 500 -60 PT 14.2 SEC (12.0-15.0) 11/14/16 04:30 INR 1.11 (0.83-1.16) 11/14/16 04:30 awake alert nad anicteric op clear rrr no mrg cta b soft nt nd no cce warm dry well perfused oriented appropriate ICD10 Worksheet Patient Problems: Problems Problem Status Onset Arterial ischemic stroke, chronic Acute Dehydration Acute Urinary tract infection Acute
[2016-11-15] MEDS: LIDOCAINE 5% 1 EA PATCH TD SCH (13:29)
[2016-11-15] MEDS: CEPHALEXIN 250 MG CAP PO SCH (17:48)
[2016-11-15 19:07] LABS: POTASSIUM 4.3 mEq/L (3.5-5.2)
[2016-11-15] MEDS ORDERED: PATCH REMOVAL 1 EA PATCH TD SCH (21:00)
[2016-11-15] MEDS: AMITRIPTYLINE HCL 10 MG TAB PO SCH (21:46)
[2016-11-15] MEDS: PROPRANOLOL HCL 20 MG TAB PO SCH (21:46)
[2016-11-16] MEDS: CEPHALEXIN 250 MG CAP PO SCH ×3 (00:04→12:13)
[2016-11-16] MEDS: LEVOTHYROXINE 112 MCG TAB PO SCH (05:11)
[2016-11-16 07:48] VITALS: RESP 16
[2016-11-16] MEDS: INSULIN LISPRO 100 UNIT/ML SC SCH ×2 (07:58→11:59)
[2016-11-16] MEDS: ATORVASTATIN CALCIUM 40 MG TAB PO SCH (08:08)
[2016-11-16] MEDS: DOCUSATE SODIUM 100 MG CAP PO SCH (08:08)
[2016-11-16] MEDS: LOSARTAN POTASSIUM 25 MG TAB PO SCH (08:08)
[2016-11-16] MEDS: PANTOPRAZOLE SODIUM 40 MG TAB PO SCH (08:08)
[2016-11-16] MEDS: OXYBUTYNIN 5 MG EXT REL TAB PO SCH (08:08)
[2016-11-16] MEDS: ASPIRIN EC 325 MG TAB PO SCH (08:09)
[2016-11-16] MEDS: ENOXAPARIN 40 MG/0.4 ML SYR SC SCH (08:09)
[2016-11-16] MEDS: LIDOCAINE 5% 1 EA PATCH TD SCH (08:09)
[2016-11-16] MEDS: ESTRADIOL 1 MG TAB PO SCH (08:09)
[2016-11-16] MEDS: traMADol 50 MG TAB PO PRN (08:15)
--- NOTE | 2016-11-16 11:06 | PDIAF ---
- Diagnosis Code Status: Full Code - Medication Management Discharge Medications: Medications to Continue on Transfer Amitriptyline HCl [Elavil 10 mg (*)] 20 mg PO HS 07/02/12 [Last Taken 07/08/12 19:00] Estradiol [Estradiol 1 MG (*)] 0.5 mg PO DAILY 07/02/12 [Last Taken Unknown] Furosemide [Lasix 20 MG (*)] 20 mg PO DAILY PRN 07/02/12 [Last Taken 07/08/12 07 :00] Levothyroxine [Synthroid 112 mcg (*)] 112 mcg PO DAILY06 07/02/12 [Last Taken 06:30] Losartan Potassium [Cozaar 25 mg (*)] 25 mg PO DAILY 07/02/12 [Last Taken 06:30] Propranolol HCl [Inderal 20mg (*)] 20 mg PO HS 07/02/12 [Last Taken 07/08/12 19: 00] metFORMIN HCL [Glucophage 500 mg (*)] 500 mg PO BIDMEAL 07/02/12 [Last Taken 05/08 06:30] traMADol [Ultram 50 mg (*)] 50 - 100 mg PO DAILY PRN 07/02/12 [Last Taken 06:30] Docusate Sodium [Colace 100 MG (*)] 100 mg PO DAILY 11/14/16 [Last Taken Unknown ] Omeprazole [Prilosec 20 mg] 40 mg PO DAILY 11/14/16 [Last Taken Unknown] Oxybutynin Chloride Xl [Ditropan Xl 5mg (*)] 5 mg PO DAILY 11/14/16 [Last Taken Unknown] Acetaminophen [Tylenol ES 500 mg (*)] 500 - 1,000 mg PO Q6HRS PRN #0 tab [Last Taken Unknown] Aspirin EC [Aspirin EC 325 mg (*)] 325 mg PO DAILY #0 tab 11/16/16 [Last Taken Unknown] Atorvastatin Calcium [Lipitor 40 mg (*)] 40 mg PO DAILY #0 tab 11/16/16 [Last Taken Unknown] Cephalexin [Keflex (*)] 250 mg PO Q6HRS 7 Days 11/16/16 [Last Taken Unknown] Lidocaine 5% [Lidoderm 5% Patch (*)] 1 ea TD DAILY #0 patch 11/16/16 [Last Taken Unknown] Patch Removal 1 ea TD DAILY21 #0 patch 11/16/16 [Last Taken Unknown] oxyCODONE IR [Oxycodone Ir (*)] 5 - 10 mg PO Q3HRS PRN #45 tab 11/16/16 [Last Taken Unknown] Discharge Medications: Refer to the Discharge Home Medication list for PRN reason. - Orders Services needed: Registered Nurse, Certified Integration Aide, Physical Therapy, Occupational Therapy Diet Recommendation: no restrictions on diet Weigh Patient: weekly [place]: Not applicable Activity/Weight Bearing Restrictions: Fall risk. Ambulate with assist TID. Equipment: Holter Monitor x 48 hours. F/u with [employer] for reading. Additional: Continue Keflex until 11/23. - Follow Up Care Current Providers and Referrals: Patient,NotPresent [Unknown] - As per Instructions Josesito Azevedo DO [Doctor of Osteopathy] - (call for a follow up appointment in the next month) Zane Jurado MD [Primary Care Provider] - (call to be seen after dc from rehab)
--- NOTE | 2016-11-16 11:21 | PDDCSUM ---
Discharge Summary Discharge Summary: Dates of service 11/14-11/16/16 Consultations: neurology Procedures performed: head CT, c spine CT, brain MRI, echocardiogram, head/neck CTA Hospital course by problem: # subacute cva: subacute infarct in parietal and temporal right sided, no tpa given timing, CTA head and neck performed showing small m2 thrombus. Echo unremarkable, no events on tele. For now tx with full dose asa, will need to dc with holter monitor and f/u with cardiology to continue eval for occult a fib # UTI: barton sensitive e coli on culture, will transition to keflex with a plan to continue x 10 days for presumed complicated uti # acute encephalopathy: with significant somnolence and confusion initially that has now resolved, likely initial encephalopathy due to combination of cva/ uti and medication effect related to meclizine which has been dc'ed # weakness/dysequilibrium: in setting of above as well as generalized deconditioning. Improving, will continue pt/ot and dc to snf # hld: given cva, will switch from low dose simvastatin to atorvastatin 40, LDL 82 # htn: well conrolled, continue lasix, losartan # dm: with A1c of 6.1, well controlled on current regimen DC to SNF Meds: see EHR > 35 minutes spent in dc of patient more than half in coordination of care
[2016-11-16 11:32] VITALS: BP 109/79; PULSE 65; TEMP 98.4; O2SAT 94
== END 2016-11-16 13:06 | DRG 64 ==
LOC: EDUNIT# → F3N 11-14 00:24
PROVIDERS: ADMIT Internal Medicine; ATTEND Internal Medicine
DX: I63.311 Cerebral infarction due to thrombosis of right middle cerebral artery (principal); G81.94 Hemiplegia, unspecified affecting left nondominant side; H53.462 Homonymous bilateral field defects, left side; R44.8 Other symptoms and signs involving general sensations and perceptions; R27.8 Other lack of coordination; R29.6 Repeated falls; M62.82 Rhabdomyolysis; E86.0 Dehydration; N39.0 Urinary tract infection, site not specified; B96.20 Unspecified Escherichia coli [E. coli] as the cause of diseases classified elsewhere; G92 Toxic encephalopathy; E78.5 Hyperlipidemia, unspecified; I10 Essential (primary) hypertension; E11.9 Type 2 diabetes mellitus without complications; E03.9 Hypothyroidism, unspecified; E66.09 Other obesity due to excess calories; G47.33 Obstructive sleep apnea (adult) (pediatric); Z96.642 Presence of left artificial hip joint
CPT/HCPCS: 92523-GN; 96365; 97116-GP; 97161-GP; 97166-GO; 97530-GO; 97530-GP; 97535-GO; G8978-GP-CJ; G8979-GP-CI; G8980-GP-CI; G8987-GO-CK; G8988-GO-CJ; G9168-GN-CJ; G9169-GN-CJ; J0696; J1650; J3475; Q9967

== ENCOUNTER → 2017-01-09 | Outpatient (CLI) | payer OTHER, MEDICAID | LOC: BHFA 13:30 | PROVIDERS: ATTEND Internal Medicine Cardiovascular Disease | DX: I63.411 Cerebral infarction due to embolism of right middle cerebral artery (principal); R42 Dizziness and giddiness | CPT/HCPCS: 78452; 93017; A9500; J2785 ==

== ENCOUNTER 2017-05-03 09:58 | Day surgery (SDC) | payer OTHER, MEDICAID ==
[2017-05-03] MEDS ORDERED: LR 1,000 ML IV ONE (12:18)
[2017-05-03] MEDS ORDERED: LIDOCAINE 1% 2 ML INJ ID PRN (12:18)
[2017-05-03] MEDS ORDERED: NALOXONE HCL 0.4 MG/ML INJ IVP PRN (13:31)
[2017-05-03] MEDS ORDERED: fentaNYL 100 MCG/2 ML INJ IVP PRN (13:31)
[2017-05-03] MEDS ORDERED: ACETAMINOPHEN 500 MG TAB PO PRN (13:31)
[2017-05-03] MEDS ORDERED: ONDANSETRON 4 MG/2 ML VIAL IVP PRN (13:31)
[2017-05-03] MEDS ORDERED: ALBUTEROL 3 ML DEYVIAL IH PRN (13:31)
--- NOTE | 2017-05-03 13:31 | PDANEPAE ---
ANE History of Present Illness EGD ANE Past Medical History - Cardiovascular History Hx Hypertension: Yes Hx Arrhythmias: No Hx Chest Pain: No Hx Coronary Artery / Peripheral Vascular Disease: No Hx CHF / Valvular Disease: No Hx Palpitations: No - Pulmonary History Hx COPD: No Hx Asthma/Reactive Airway Disease: No Hx Recent Upper Respiratory Infection: No Hx Oxygen in Use at Home: No Hx Sleep Apnea: Yes Sleep Apnea Screening Result - Last Documented: Positive - Neurologic History Hx Cerebrovascular Accident: Yes Hx Seizures: No Hx Dementia: No Neurologic History Comment: CVA RIGHT PARIETAL NOVEMBER 21, AGE UNKNOWN - Endocrine History Hx Diabetes: Yes Endocrine History Comment: Type 2 - Renal History Hx Renal Disorders: Yes Renal History Comment: BLADDER SPASMS, OAP - Liver History Hx Hepatic Disorders: No - Neurological & Psychiatric Hx Hx Neurological and Psychiatric Disorders: Yes Neurological / Psychiatric History Comment: mildly depressed since stroke. - Cancer History Hx Cancer: No - Congenital Disorder History Hx Congenital Disorders: No - GI History Hx Gastrointestinal Disorders: Yes Gastrointestinal History Comment: reflux - Other Health History Other Health History: none - Chronic Pain History Chronic Pain: No - Surgical History Prior Surgeries: L hip replacement, R shoulder ANE Review of Systems Review of Systems: - Exercise capacity METS (RN): 3 METS ANE Patient History - Allergies Allergies/Adverse Reactions: ciprofloxacin [From Cipro] Allergy (Severe, Verified 11/13/16 21:17) Rash ciprofloxacin HCl [From Cipro] Allergy (Severe, Verified 11/13/16 21:17) Rash - Home Medications Home Medications: Amitriptyline HCl [Elavil 10 mg (*)] 07/02/12 [Last Taken 07/08/12 19:00] Estradiol [Estradiol 1 MG (*)] 07/02/12 [Last Taken Unknown] Furosemide [Lasix 20 MG (*)] 07/02/12 [Last Taken 07/08/12 07:00] Levothyroxine [Synthroid 112 mcg (*)] 07/02/12 [Last Taken 07/09/12 06:30] Losartan Potassium [Cozaar 25 mg (*)] 07/02/12 [Last Taken 07/09/12 06:30] Propranolol HCl [Inderal 20mg (*)] 07/02/12 [Last Taken 07/08/12 19:00] metFORMIN HCL [Glucophage 500 mg (*)] 07/02/12 [Last Taken 07/06/12 06:30] traMADol [Ultram 50 mg (*)] 07/02/12 [Last Taken 07/09/12 06:30] Docusate Sodium [Colace 100 MG (*)] 11/14/16 [Last Taken Unknown] Omeprazole [Prilosec 20 mg] 11/14/16 [Last Taken Unknown] Acetaminophen [Tylenol ES 500 mg (*)] 04/12/17 [Last Taken Unknown] Aspirin EC [Aspirin EC 325 mg (*)] 04/12/17 [Last Taken Unknown] Atorvastatin Calcium [Lipitor 40 mg (*)] 04/12/17 [Last Taken Unknown] - NPO status NPO Since - Liquids (Date): 05/02/17 NPO Since - Liquids (Time): 21:00 NPO Since - Solids (Date): 05/02/17 NPO Since - Solids (Time): 21:00 - Smoking Hx Smoking Status: Never smoked - Family Anes Hx Family Hx Anesthesia Complications: none ANE Labs/Vital Signs - Vital Signs Blood Pressure: 112/74 Heart Rate: 62 Respiratory Rate: 18 O2 Sat (%): 91 Height: 160.02 cm Weight: 58.06 kg ANE Physical Exam - Airway Neck exam: FROM Mallampati Score: Class 3 Mouth exam: dentures - Pulmonary Pulmonary: clear to auscultation - Cardiovascular Cardiovascular: regular rate and rhythym - ASA Status ASA Status: III ANE Anesthesia Plan Anesthesia Plan: GA with mask
--- NOTE | 2017-05-03 13:42 | PDHPUP ---
History & Physical Update H&P update statement: This history and physical update is based on an assessment of the patient which was completed after admission or registration (within 24 hours), but prior to the surgery/procedure. H&P update: H&P reviewed & patient examined, no change in patient's condition since H&P completed
[2017-05-03] MEDS ORDERED: PROPOFOL/EMULSION 500 MG/50 ML BOTTLE IV ONE (13:43)
--- NOTE | 2017-05-03 14:00 | GIREPORT ---
[facility] Surgical Services - Endoscopy Department Patient Name: Amanda Kaur Procedure Date: 05/03/2017 12:04 PM Patient Type: Outpatient Attending MD/ ER Physician: Dell Yap MD Procedure: Upper GI endoscopy Indications: Follow-up of Tidwell's esophagus Providers: Dell Yap MD Medicines: General Anesthesia Complications: No immediate complications. Description of Procedure: After obtaining informed consent, the endoscope was passed under direct vision. Throughout the procedure, the patient's blood pressure, pulse, and oxygen saturations were monitored continuous ly. The Endoscope was introduced through the mouth, and advanced to the fourth part of duodenum. The upper GI endoscopy was accomplished with ease. The patient tolerated the procedure well. Findings: The esophagus and gastroesophageal junction were examined with white light and narrow band imagi ng (NBI) from a forward view and retroflexed position. There were esophageal mucosal changes consis tent with short-segment Tidwell's esophagus. These changes involved the mucosa extending to the Z-cynthia e (40 cm from the incisors). Circumferential salmon-colored mucosa was present from 39 to 40 cm. The maximum longitudinal extent of these esophageal mucosal changes was 1 cm in length. Mucosa was biopsied with a cold forceps for histology in 4 quadrants at intervals of 1 cm at 39 cm from the incisors. One specimen bottle was sent to pathology. The entire examined stomach was normal. The examined duodenum was normal. A 5 cm hiatal hernia was present. Estimated Blood Loss: Estimated blood loss: none. Post Op Diagnosis: - Esophageal mucosal changes consistent with short-segment Tidwell's esophagus. Biopsied. - Normal stomach. - Normal examined duodenum. - 5 cm hiatal hernia. Recommendation: - Await pathology results. Attending Participation: I personally performed the entire procedure. Dell Yap MD Dell Yap MD 05/03/2017 1:59:41 PM Number of Addenda: 0 Note Initiated On: 05/03/2017 12:04 PM [email or web address]
[2017-05-03 14:05] VITALS: PULSE 57
--- NOTE | 2017-05-03 14:07 | POSTANESTH ---
Post Anesthetic Evaluation Cardiovascular Status: Normal, Stable Respiratory Status: Normal, Stable Level of Consciousness/Mental Status: Can Participate in Eval, Mildly Sleepy, Arousable Pain Control: Adequate, Prn Tx Ordered Nausea/Vomiting Control: Adequate, Prn Tx Ordered Complications Possibly Related to Anesthesia: None Noted
[2017-05-03 14:45] VITALS: RESP 16
[2017-05-03 15:26] VITALS: O2SAT 95
[2017-05-03 15:49] VITALS: BP 141/81
[2017-05-03 16:00] VITALS: TEMP 97.5
== END 2017-05-03 15:45 | disposition home or self-care (01) ==
LOC: FSGY 09:58
PROVIDERS: ATTEND Internal Medicine Gastroenterology
DX: K22.70 Barrett's esophagus without dysplasia (principal); K44.9 Diaphragmatic hernia without obstruction or gangrene; K21.9 Gastro-esophageal reflux disease without esophagitis; G47.33 Obstructive sleep apnea (adult) (pediatric); Z86.73 Personal history of transient ischemic attack (TIA), and cerebral infarction without residual deficits; E03.9 Hypothyroidism, unspecified; I10 Essential (primary) hypertension; Z96.642 Presence of left artificial hip joint; Z96.611 Presence of right artificial shoulder joint
CPT/HCPCS: J2704

== ENCOUNTER → 2018-10-22 | Outpatient (CLI) | payer OTHER, MEDICAID | LOC: BMCIMAGING 13:18 | PROVIDERS: ATTEND Orthopaedic Surgery | DX: M17.0 Bilateral primary osteoarthritis of knee (principal) ==

== ENCOUNTER 2018-10-26 11:46 | Inpatient (IN) | payer OTHER, MEDICAID ==
[2018-10-26] MEDS ORDERED: NS 2,300 ML IV ONE (12:39)
--- NOTE | 2018-10-26 12:43 | EDPHY ---
H & P Stated Complaint: pt found on floor since last night, slipped to floor, couldnt get up Time Seen by Provider: 10/26/18 12:32 HPI/ROS: CHIEF COMPLAINT: Generalized weakness, found down HISTORY OF PRESENT ILLNESS: The patient is an 78-year-old female who was brought by ambulance. Family is now here. They state that she has been feeling weak for the last couple of days and then at some point yesterday she slipped and fell down. She has abrasions to her right knee. She denies leg pain. She denies any focal pain. She did not hit her head. No neck pain. She has a history of right-sided CVA family tells me she has no residual symptoms although she apparently does have difficulty ambulating at baseline. Paramedics remarked that her diaper had foul-smelling urine. No rashes. No chest pain or shortness of breath. No nausea vomiting or diarrhea. No headache or dizziness. Severity: Moderate Modifying factors: None REVIEW OF SYSTEMS: Constitutional: Generalized weakness denies: chills, fever, recent illness, recent injury EENTM: denies: blurred vision, double vision, nose congestion Respiratory: denies: cough, shortness of breath Cardiac: denies: chest pain, irregular heart rate, lightheadedness, palpitations Gastrointestinal/Abdominal: denies: abdominal pain, diarrhea, nausea, vomiting, blood streaked stools Genitourinary: denies: dysuria, frequency, hematuria, pain Musculoskeletal: denies: joint pain, muscle pain Skin: denies: lesions, rash, jaundice, bruising Neurological: denies: headache, numbness, paresthesia, tingling, dizziness, Hematologic/Lymphatic: denies: blood clots, easy bleeding, easy bruising Immunologic/allergic: denies: HIV/AIDS, transplant 10 systems reviewed and negative except as noted EXAM: GENERAL: Well-appearing, overweight and in no acute distress. HEAD: Atraumatic, normocephalic. EYES: Pupils equal round and reactive to light, extraocular movements intact, sclera anicteric, conjunctiva are normal. ENT: TMs normal, nares patent, oropharynx clear without exudates. Moist mucous membranes. NECK: Normal range of motion, supple without lymphadenopathy or JVD. LUNGS: Breath sounds clear to auscultation bilaterally and equal. No wheezes rales or rhonchi. HEART: Regular rate and rhythm without murmurs, rubs or gallops. ABDOMEN: Soft, nontender, normoactive bowel sounds. No guarding, no rebound. No masses appreciated. BACK: No CVA tenderness, no spinal tenderness, step-offs or deformities EXTREMITIES: Normal range of motion, no pitting or edema. No clubbing or cyanosis. Normal range of motion and strength while in bed. NEUROLOGICAL: Cranial nerves II through XII grossly intact. Normal speech, normal gait. 5/5 strength, normal movement in all extremities, normal sensation , normal reflexes PSYCH: Normal mood, normal affect. SKIN: Abrasion to nasal bridge where glasses were. Abrasion to right knee Warm , dry, normal turgor, no visible rashes or lesions. Source: Patient Exam Limitations: No limitations - Personal History Current Tetanus/Diphtheria Vaccine: Yes Current Tetanus Diphtheria and Acellular Pertussis (TDAP): Yes Tetanus Vaccine Date: 2009 - Medical/Surgical History Hx Asthma: No Hx Chronic Respiratory Disease: No Hx Diabetes: No Hx Cardiac Disease: Yes Hx Renal Disease: No Hx Cirrhosis: No Hx Alcoholism: No Hx HIV/AIDS: No Hx Splenectomy or Spleen Trauma: No Other PMH: Hypothyroidism, HTN, Tremors, Vertigo, Arthritis, HLD, hyperlipidemia , GERD, stroke 2017 (right arm weakness and bilateral leg weakness with recurrent falls) - Family History Significant Family History: No pertinent family hx - Social History Smoking Status: Never smoked Alcohol Use: Sober Drug Use: None Constitutional: Initial Vital Signs Temperature (C) 36.5 C 10/26/18 11:57 Heart Rate 66 10/26/18 11:57 Respiratory Rate 16 10/26/18 11:57 Blood Pressure 133/73 H 10/26/18 11:57 O2 Sat (%) 97 10/26/18 11:57 O2 Delivery Mode Room Air Allergies/Adverse Reactions: ciprofloxacin [From Cipro] Allergy (Severe, Verified 10/26/18 12:04) Rash ciprofloxacin HCl [From Cipro] Allergy (Severe, Verified 10/26/18 12:04) Rash Home Medications: Medication Instructions Recorded Amitriptyline HCl [Elavil 10 mg 10 mg PO HS 10/26/18 (*)] Atorvastatin Calcium [Lipitor 40 40 mg PO DAILY 10/26/18 mg (*)] Docusate Sodium [Stool Softener] 100 mg PO DAILY PRN 10/26/18 Furosemide [Lasix 20 MG (*)] 20 mg PO DAILY PRN 10/26/18 Levothyroxine [Synthroid 88 mcg 88 mcg PO DAILY06 10/26/18 (*)] Losartan Potassium [Cozaar 25 mg 25 mg PO DAILY 10/26/18 (*)] Metformin HCl [Fortamet] 500 mg PO BID 10/26/18 Naproxen 500 mg PO BID PRN 10/26/18 Omeprazole 40 mg PO DAILY 10/26/18 Primidone [Mysoline 50mg (RX)] 75 mg PO DAILY 10/26/18 Medical Decision Making ED Course/Re-evaluation: 2:40 p.m. there has been significant delay obtaining a urine sample. I discussed the case with Dr. Ramos who will admit to the hospitalist service. Antibiotics have been ordered for cloudy urine. She has received hydration for the very mild rhabdomyolysis. Differential Diagnosis: Partial list of the Differential diagnosis considered include but were not limited to; urinary tract infection, sepsis, rhabdomyolysis and although unlikely based on the history and physical exam, I also considered CVA, pneumonia, acute coronary disease. - Data Points Laboratory Results: Laboratory Results 10/26/18 13:10 10/26/18 13:10 Microbiology Results: MICROBIOLOGY 10/26/18 14:35 Urine,Clean Catch Urine Culture - Preliminary Medications Given: Aspirin (Aspirin) 81 mg PO DAILY [facility] Stop: 04/25/19 08:59 Last Admin: 10/27/18 08:49 Dose: 81 mg Atorvastatin Calcium (Lipitor) 40 mg PO DAILY [facility] Stop: 04/25/19 08:59 Last Admin: 10/27/18 08:48 Dose: 40 mg Enoxaparin Sodium (Lovenox) 40 mg SC DAILY [facility] Stop: 04/25/19 08:59 Last Admin: 10/27/18 08:49 Dose: 40 mg Sodium Chloride (Ns) 1,000 mls @ 125 mls/hr IV CONT [facility] Stop: 04/24/19 15:59 Last Admin: 10/27/18 14:30 Dose: 1,000 mls Levothyroxine Sodium (Synthroid) 88 mcg PO DAILY06 [facility] Stop: 04/25/19 05:59 Last Admin: 10/27/18 06:16 Dose: 88 mcg Losartan Potassium (Cozaar) 25 mg PO DAILY [facility] Stop: 04/25/19 08:59 Last Admin: 10/27/18 08:48 Dose: 25 mg Pantoprazole Sodium (Protonix) 40 mg PO DAILY [facility] Stop: 04/25/19 08:59 Last Admin: 10/27/18 08:48 Dose: 40 mg Discontinued Medications Sodium Chloride (Ns) 2,300 mls @ 4,600 mls/hr 30 ml/kg infuse over 30 min ( 2300 ml) IV EDNOW ONE PRN Reason: Protocol Stop: 10/26/18 13:08 Last Admin: 10/26/18 12:55 Dose: 2,300 mls Ceftriaxone Sodium/Dextrose (Rocephin 1 Gm (Premix)) 50 mls @ 100 mls/hr IV EDNOW ONE PRN Reason: Protocol Stop: 10/26/18 15:05 Last Admin: 10/26/18 14:56 Dose: 50 mls Insulin Human Lispro (Humalog Lispro) 0 unit SC TIDMEAL [facility] PRN Reason: Protocol Stop: 04/24/19 17:59 Last Admin: 10/27/18 11:54 Dose: Not Given Metformin HCl (Glucophage) 500 mg PO BIDMEAL [facility] Stop: 04/24/19 17:59 Last Admin: 10/27/18 08:48 Dose: 500 mg Potassium Chloride (Klor-Con) 10 - 40 meq PO ONCE ONE PRN Reason: Protocol Stop: 10/26/18 19:46 Last Admin: 10/26/18 21:27 Dose: 40 meq Departure - Departure Disposition: [facility] Acute Clinical Impression: Urinary tract infection Qualifiers: Urinary tract infection type: acute cystitis Hematuria presence: without hematuria Qualified Code(s): N30.00 - Acute cystitis without hematuria Condition: Good
[2018-10-26 13:26] LABS: PLATELET COUNT 227 10^3/uL (150-400)
[2018-10-26 13:41] LABS: PROTIME(PATIENT) 12.8 SEC (12.0-15.0)
[2018-10-26 13:44] LABS: CREATINE KINASE 1533 IU/L (0-156)
[2018-10-26] MEDS ORDERED: ONDANSETRON DISINTEGRATING 4 MG TAB PO PRN (15:50)
[2018-10-26] MEDS ORDERED: ONDANSETRON 4 MG/2 ML VIAL IVP PRN (15:50)
[2018-10-26] MEDS ORDERED: DOCUSATE SODIUM 100 MG CAP PO PRN (15:52)
--- NOTE | 2018-10-26 16:10 | PDGENHP ---
History and Physical - Chief Complaint found down - History of Present Illness 78yo F with history of CVA with residual right sided weakness, htn, diabetes was brought in by EMS after being found down. She fell 2 nights ago. Was ambulating with her walker when her right knee gave out. She did not lose consciousness or hit her head. She was too weak to get up. She crawled to her bedroom but couldn't reach a phone. Her family called her, and when she didn't answer, they asked someone to check in on her. She was found between her bed and the wall with some abrasions. She reports being in her usual state of health prior to this. She denies any fevers, chills, chest pain, syncope, shortness of breath, nausea, vomiting, diarrhea. Of note, she was just started on primidone for tremors approximately 5 days before she fell. In the ED, she had a mildly elevated CK at 1500. Her urine appeared cloudy and she was given a dose of ceftriaxone. She is too weak to ambulate at all and is being admitted for further evaluation and treatment. Case discussed with ED physician Josesito Burgess. History Information - Allergies/Home Medication List Allergies/Adverse Reactions: ciprofloxacin [From Cipro] Allergy (Severe, Verified 10/26/18 12:04) Rash ciprofloxacin HCl [From Cipro] Allergy (Severe, Verified 10/26/18 12:04) Rash Home Medications: Amitriptyline HCl [Elavil 10 mg (*)] 10 mg PO HS 10/26/18 [Last Taken Unknown] Atorvastatin Calcium [Lipitor 40 mg (*)] 40 mg PO DAILY 10/26/18 [Last Taken Unknown] Docusate Sodium [Stool Softener] 100 mg PO DAILY PRN 10/26/18 [Last Taken Unknown] Furosemide [Lasix 20 MG (*)] 20 mg PO DAILY PRN 10/26/18 [Last Taken Unknown] Levothyroxine [Synthroid 88 mcg (*)] 88 mcg PO DAILY06 10/26/18 [Last Taken Unknown] Losartan Potassium [Cozaar 25 mg (*)] 25 mg PO DAILY 10/26/18 [Last Taken Unknown] Metformin HCl [Fortamet] 500 mg PO BID 10/26/18 [Last Taken Unknown] Naproxen 500 mg PO BID PRN 10/26/18 [Last Taken Unknown] Omeprazole 40 mg PO DAILY 10/26/18 [Last Taken Unknown] Primidone [Mysoline 50mg (RX)] 75 mg PO DAILY 10/26/18 [Last Taken Unknown] I have personally reviewed and updated: family history, medical history, social history, surgical history - Past Medical History Additional medical history: hypertension. hyperlipidemia. hypothyroidism. GERD. resting tremor. vertigo. osteoarthritis. overactive bladder. CVA with residual rigth sided weakness - Surgical History Additional surgical history: L hip replacement. R shoulder repair. bladder sling - Family History Additional family history: Brothers, father: CVAs. DM2, CAD - Social History Smoking Status: Never smoked Alcohol Use: Sober Drug Use: None Additional social history: Patient currently lives alone, uses walker to ambulate. She has a son and multiple other family members in the area who are very involved in her care. Review of Systems Review of Systems: ROS: 10pt was reviewed & negative except for what was stated in HPI & below Physical Exam Physical Exam: Temp Pulse Resp BP Pulse Ox 36.5 C 82 16 142/70 H 95 10/26/18 11:57 10/26/18 13:24 10/26/18 13:24 10/26/18 13:24 10/26/18 13:24 Constitutional: no apparent distress, appears nourished, not in pain Eyes: PERRL, anicteric sclera, EOMI Ears, Nose, Mouth, Throat: hearing normal, ears appear normal, no oral mucosal ulcers, dry mucous membranes Cardiovascular: regular rate and rhythym, no murmur, rub, or gallop, No edema Respiratory: no respiratory distress, no rales or rhonchi, clear to auscultation Gastrointestinal: normoactive bowel sounds, soft, non-tender abdomen, no palpable masses Genitourinary: no bladder fullness, no bladder tenderness Skin: abrasion (knees, elbows) Musculoskeletal: generalized weakness Neurologic: AAOx3, sensation intact bilaterally, CN II-XII Intact, No facial droop Psychiatric: interacting appropriately Lab Data & Imaging Review 10/26/18 13:10 10/26/18 13:10 WBC 7.47 10^3/uL (3.80-9.50) 10/26/18 13:10 RBC 5.69 10^6/uL (4.18-5.33) H 10/26/18 13:10 Hgb 15.1 g/dL (12.6-16.3) 10/26/18 13:10 Hct 46.2 % (38.0-47.0) 10/26/18 13:10 MCV 81.2 fL (81.5-99.8) L 10/26/18 13:10 MCH 26.5 pg (27.9-34.1) L 10/26/18 13:10 MCHC 32.7 g/dL (32.4-36.7) 10/26/18 13:10 RDW 14.9 % (11.5-15.2) 10/26/18 13:10 Plt Count 227 10^3/uL (150-400) 10/26/18 13:10 MPV 11.6 fL (8.7-11.7) 10/26/18 13:10 Neut % (Auto) 69.7 % (39.3-74.2) 10/26/18 13:10 Lymph % (Auto) 21.6 % (15.0-45.0) 10/26/18 13:10 [place] % (Auto) 7.8 % (4.5-13.0) 10/26/18 13:10 Eos % (Auto) 0.3 % (0.6-7.6) L 10/26/18 13:10 Baso % (Auto) 0.3 % (0.3-1.7) 10/26/18 13:10 Nucleat RBC Rel Count 0.0 % (0.0-0.2) 10/26/18 13:10 Absolute Neuts (auto) 5.22 10^3/uL (1.70-6.50) 10/26/18 13:10 Absolute Lymphs (auto) 1.61 10^3/uL (1.00-3.00) 10/26/18 13:10 Absolute Monos (auto) 0.58 10^3/uL (0.30-0.80) 10/26/18 13:10 Absolute Eos (auto) 0.02 10^3/uL (0.03-0.40) L 10/26/18 13:10 Absolute Basos (auto) 0.02 10^3/uL (0.02-0.10) 10/26/18 13:10 Absolute Nucleated RBC 0.00 10^3/uL (0-0.01) 10/26/18 13:10 Immature Gran % 0.3 % (0.0-1.1) 10/26/18 13:10 Immature Gran # 0.02 10^3/uL (0.00-0.10) 10/26/18 13:10 PT 12.8 SEC (12.0-15.0) 10/26/18 13:10 INR 1.00 (0.83-1.16) 10/26/18 13:10 APTT 28.4 SEC (23.0-38.0) 10/26/18 13:10 VBG Lactic Acid 1.6 mmol/L (0.7-2.1) 10/26/18 13:55 Sodium 139 mEq/L (135-145) 10/26/18 13:10 Potassium 3.1 mEq/L (3.5-5.2) L 10/26/18 13:10 Chloride 105 mEq/L (97-110) 10/26/18 13:10 Carbon Dioxide 24 mEq/l (22-31) 10/26/18 13:10 Anion Gap 10 mEq/L (6-14) 10/26/18 13:10 BUN 27 mg/dL (7-23) H 10/26/18 13:10 Creatinine 0.6 mg/dL (0.6-1.0) 10/26/18 13:10 Estimated GFR > 60 10/26/18 13:10 Glucose 111 mg/dL (70-100) H 10/26/18 13:10 Calcium 9.6 mg/dL (8.5-10.4) 10/26/18 13:10 Total Bilirubin 0.9 mg/dL (0.1-1.4) 10/26/18 13:10 Creatine Kinase 1533 IU/L (0-156) H 10/26/18 13:10 CK-MB (CK-2) Fraction 19.60 ng/mL (0.00-4.55) H 10/26/18 13:10 CK-MB (CK-2) % 1.3 % (0.0-4.0) 10/26/18 13:10 Creatine Kinase Interp NEGATIVE (NEGATIVE) 10/26/18 13:10 TSH 3.430 uIU/mL (0.465-4.680) 10/26/18 13:10 Free T4 1.46 ng/dL (0.59-2.19) 10/26/18 13:10 Urine Color YELLOW 10/26/18 14:35 Urine Appearance MODERATELY TURBID 10/26/18 14:35 Urine pH 5.0 (5.0-7.5) 10/26/18 14:35 Ur Specific [place] 1.023 (1.002-1.030) 10/26/18 14:35 Urine Protein NEGATIVE (NEGATIVE) 10/26/18 14:35 Urine Ketones 1+ (NEGATIVE) H 10/26/18 14:35 Urine Blood NEGATIVE (NEGATIVE) 10/26/18 14:35 Urine Nitrate NEGATIVE (NEGATIVE) 10/26/18 14:35 Urine Bilirubin NEGATIVE (NEGATIVE) 10/26/18 14:35 Urine Urobilinogen NEGATIVE EU (0.2-1.0) 10/26/18 14:35 Ur Leukocyte Esterase NEGATIVE (NEGATIVE) 10/26/18 14:35 Urine RBC 1-3 /hpf (0-3) 10/26/18 14:35 Urine WBC 5-10 /hpf (0-3) H 10/26/18 14:35 Ur Epithelial Cells TRACE /lpf (NONE-1+) 10/26/18 14:35 Urine Mucus 4+ /lpf (NONE-1+) H 10/26/18 14:35 Urine Glucose NEGATIVE (NEGATIVE) 10/26/18 14:35 Assessment & Plan Assessment: 78yo F with history of CVA with residual right sided weakness, htn, diabetes was brought in by EMS after being found down. She was too weak to get up after a mechanical fall. Plan: #Fall, generalized weakness: Mechanical. Denies LOC or headstrike. She lives alone; suspect she may need a higher level of care. - Non-contrasted head CT - Check troponin, ecg - PT/OT - Hold her primidone (just started 10/19, side effect is vertigo) and elavil #Mild rhabdo: CK 1500. Creatinine ok. - IVF, trend CK #Hypokalemia: Replete, monitor on protocol. #Concern for UTI: UA doesn't appear infected. S/p CTX in ED. Will defer additional abx, f/u urine culture. #HTN: Continue home meds. #H/o CVA: Continue aspirin, statin. #Diabetes: Continue metformin. ACHS glucose checks, SSI. #Hypothyroid: TSH ok. Home LT4 replacement. #Tremor: Holding primidone. VTE ppx: LMWH Code: full Dispo: Admit under observation
[2018-10-26 16:14] LABS: CREATINE KINASE 1513 IU/L (0-156)
[2018-10-26] MEDS ORDERED: D50W 25 GM/50 ML SYR IVP PRN (16:19)
[2018-10-26] MEDS ORDERED: PROTOCOL POTASSIUM 1 DOSE MISC PRN (16:21)
[2018-10-26] MEDS: metFORMIN HCL 500 MG TAB PO SCH (18:25)
[2018-10-26] MEDS: INSULIN LISPRO 100 UNIT/ML SC SCH (18:25)
[2018-10-26] MEDS ORDERED: POTASSIUM CL 10 MEQ TAB PO ONE (19:45)
[2018-10-26] MEDS ORDERED: AMITRIPTYLINE HCL 10 MG TAB PO SCH (21:00)
[2018-10-26] MEDS: NS 1,000 ML IV SCH (21:27)
[2018-10-27] MEDS: NS 1,000 ML IV SCH ×2 (05:59→14:30)
[2018-10-27] MEDS: LEVOTHYROXINE 88 MCG TAB PO SCH (06:16)
[2018-10-27] MEDS: LOSARTAN POTASSIUM 25 MG TAB PO SCH (08:48)
[2018-10-27] MEDS: metFORMIN HCL 500 MG TAB PO SCH (08:48)
[2018-10-27] MEDS: ATORVASTATIN CALCIUM 40 MG TAB PO SCH (08:48)
[2018-10-27] MEDS: PANTOPRAZOLE SODIUM 40 MG TAB PO SCH (08:48)
[2018-10-27] MEDS: ASPIRIN 81 MG CHEWABLE TAB PO SCH (08:49)
[2018-10-27] MEDS: ENOXAPARIN 40 MG/0.4 ML SYR SC SCH (08:49)
[2018-10-27] MEDS ORDERED: PRIMIDONE 50 MG TAB PO SCH (09:00)
[2018-10-27] MEDS: INSULIN LISPRO 100 UNIT/ML SC SCH ×2 (09:00→11:54)
--- NOTE | 2018-10-27 16:23 | ASMTCMCOM ---
CM Note CM Note Notes: Pt's Chart reviewed for Discharge. Pt is an 78yr old adm with generalized weakness and Rhabdomylysis. Pt history CVA w rt side weakness, HTN, Lt hip replacement. and DM. Pt with tremors so an MRI was ordered. Pt lives alone at [facility] in a single level. Her Son Franky ([phone]) lives in [facility]. Attempted to contact son but he did not answer.PT & OT recommend SNF. CM will attempt to contact Son with Pt to discuss SNF option. PLAN:TBD Date Signed: 10/27/2018 04:22 PM Electronically Signed By:Pascale Bah
[2018-10-27] MEDS ORDERED: GADOBUTROL 10 ML VIAL IVP ONE (16:44)
[2018-10-27] MEDS ORDERED: POTASSIUM CL 10 MEQ TAB PO ONE (19:59)
[2018-10-27] MEDS: ACETAMINOPHEN 325 MG TAB PO PRN (20:42)
[2018-10-28] MEDS: LEVOTHYROXINE 88 MCG TAB PO SCH (04:03)
[2018-10-28 04:20] LABS: PLATELET COUNT 162 10^3/uL (150-400)
[2018-10-28 04:26] LABS: CREATINE KINASE 480 IU/L (0-156)
[2018-10-28] MEDS: NS 1,000 ML IV SCH (06:51)
[2018-10-28] MEDS: ACETAMINOPHEN 325 MG TAB PO PRN (07:59)
[2018-10-28] MEDS: LOSARTAN POTASSIUM 25 MG TAB PO SCH (08:00)
[2018-10-28] MEDS: PANTOPRAZOLE SODIUM 40 MG TAB PO SCH (08:00)
[2018-10-28] MEDS: ASPIRIN 81 MG CHEWABLE TAB PO SCH (08:00)
[2018-10-28] MEDS: ATORVASTATIN CALCIUM 40 MG TAB PO SCH (08:00)
[2018-10-28] MEDS: ENOXAPARIN 40 MG/0.4 ML SYR SC SCH (08:00)
[2018-10-28] MEDS ORDERED: POTASSIUM CL 10 MEQ TAB PO ONE (09:05)
[2018-10-28] MEDS: AMPICILLIN SODIUM 2 GM in NS 100 ML IV SCH ×3 (09:22→21:55)
--- NOTE | 2018-10-28 15:52 | ASMTCMCOM ---
CM Note CM Note Notes: Met with Pt and son Jaycob to discussed discharge planning. They are aware PT/OT both recommend SNF for rehab but Pt is declining and would rather go home with [facility]. Son will be staying with her for a week, then another family member will stay the second week. CADEN Chamberlain & Dr Cruz notified. CM available for needs. PLAN: Likely Home w [facility] and family help Date Signed: 10/28/2018 03:52 PM Electronically Signed By:Pascale Bah
--- NOTE | 2018-10-28 16:44 | HOSPPROG ---
Hospitalist Progress Note Assessment/Plan: This is a late entry for progress note documentation on 10/27/2018. Subjective Follow-up on fall and rhabdomyolysis. Patient states that she has had approximately 3 falls over the past month. This fall unfortunately she was able to reach for her emergency alert system and was on the ground for approximately 20 hr. She states that she has had weakness of her lower extremities with the falls with a seem somewhat tremulous and then she goes to the ground. She currently lives alone but her son is very supportive. Objective Vital signs as detailed below Physical exam General-awake alert conversant no acute distress Heart-regular rate and rhythm no murmurs Lungs-Clear to auscultation with normal respiratory effort Abdomen-soft nontender nondistended normal bowel sounds -no Jaramillo catheter in place Extremities-no significant pitting edema or calf pain with palpation Skin-no concerning skin rashes noted Neuro-no asymmetry or extremity weakness appreciated Labs as detailed below Assessment and plan Fall-continue work with PT and OT. Uncertain etiology. Possibly deconditioning she has had history of stroke in the past. Will obtain MRI with and without contrast as she has had also tremulous activity of the lower extremities. I have lower suspicion for seizure activity but would not exclude. 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 Rhabdomyolysis-continue IV fluids and trend CPK. Hypokalemia-improved to 4.0. History of CVA-with residual right-sided weakness. Continue atorvastatin and aspirin therapy. Hypertension-losartan. Diabetes mellitus type 2-continue with current metformin but will be placing on hold as IV contrast. Hemoglobin A1c pending. Hypothyroidism-continue current levothyroxine 88 mcg daily. DVT prophylaxis-Lovenox. Disposition-plan will be for transfer back to home with home health. Patient's son will be staying with her for approximately 1 week. Objective: Vital Signs Temp Pulse Resp BP Pulse Ox 36.7 C 70 14 151/81 H 94 10/28/18 15:45 10/28/18 15:45 10/28/18 15:45 10/28/18 15:45 10/28/18 15:45 10/27/18 10/28/18 10/29/18 05:59 05:59 05:59 Intake Total 110 Output Total 800 Balance -690 PT 12.8 SEC (12.0-15.0) 10/26/18 13:10 INR 1.00 (0.83-1.16) 10/26/18 13:10 ICD10 Worksheet Patient Problems: Problems Problem Status Onset Urinary tract infection Acute Arterial ischemic stroke, chronic Acute Dehydration Acute
--- NOTE | 2018-10-28 16:48 | HOSPPROG ---
Hospitalist Progress Note Assessment/Plan: Subjective Follow-up on fall and rhabdomyolysis. We discussed that her MRI did show a small subacute stroke in her cerebellum. We discussed that this possibly could be playing a role with her falls of recent and discuss further evaluation with carotid artery ultrasound and was well as echocardiogram. She had a stroke workup done in [address] angiography of the head and neck did not reveal any major concerns that time. Echocardiogram was unremarkable as well. I reviewed this finding with both the patient and her son who is present at the bedside today. We discussed also obtaining a 2nd opinion with Neurology regarding current medical management considering she had this event with aspirin. Objective Vital signs as detailed below Physical exam General-awake alert conversant no acute distress Heart-regular rate and rhythm no murmurs Lungs-Clear to auscultation with normal respiratory effort Abdomen-soft nontender nondistended normal bowel sounds -no Jaramillo catheter in place Extremities-no significant pitting edema or calf pain with palpation Skin-no concerning skin rashes noted Neuro-no asymmetry or extremity weakness appreciated Labs as detailed below Assessment and plan CVA-subacute. Cerebellum. Patient had a normal CT angiography of the head and neck in 2017. Will obtain carotid artery ultrasound at this time. Will go ahead and we assess echocardiogram as well. This was unremarkable 2017. Continue with current aspirin and statin therapy which she was on at the time of this subacute CVA development. Monitor blood pressures closely as she may better control. Fall-continue work with PT and OT. 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 Rhabdomyolysis-continue IV fluids and trend CPK. Hypokalemia-resolved and maintaining within normal limits. Urinary tract infection-ampicillin started. Noted definite symptoms. I do not think weakness of the lower extremities was related. Consider short course of antibiotics and stop. History of CVA-with residual right-sided weakness. Continue atorvastatin and aspirin therapy. Hypertension-losartan. Diabetes mellitus type 2-continue with current metformin but will be placing on hold as IV contrast. Hemoglobin A1c pending. Hypothyroidism-continue current levothyroxine 88 mcg daily. DVT prophylaxis-Lovenox. Disposition-plan will be for transfer back to home with home health. Patient's son will be staying with her for approximately 1 week. Objective: Vital Signs Temp Pulse Resp BP Pulse Ox 36.7 C 70 14 151/81 H 94 10/28/18 15:45 03/24/19 15:45 10/28/18 15:45 10/28/18 15:45 10/28/18 15:45 10/27/18 10/28/18 10/29/18 05:59 05:59 05:59 Intake Total 110 Output Total 800 Balance -690 PT 12.8 SEC (12.0-15.0) 10/26/18 13:10 INR 1.00 (0.83-1.16) 10/26/18 13:10 ICD10 Worksheet Patient Problems: Problems Problem Status Onset Urinary tract infection Acute Arterial ischemic stroke, chronic Acute Dehydration Acute
[2018-10-29] MEDS: AMPICILLIN SODIUM 2 GM in NS 100 ML IV SCH ×3 (03:35→15:08)
[2018-10-29] MEDS: LEVOTHYROXINE 88 MCG TAB PO SCH (05:01)
[2018-10-29] MEDS ORDERED: POTASSIUM CL 10 MEQ TAB PO ONE ×2 (09:00→09:30)
[2018-10-29] MEDS ORDERED: CLOPIDOGREL BISULFATE 75 MG TAB PO SCH (09:00)
--- NOTE | 2018-10-29 10:33 | GCON ---
[f rep st] CONSULTATION NEUROLOGIC CONSULTATION REFERRING PHYSICIAN: Corwin Cruz MD HISTORY: The patient is an 78-year-old woman who I am seeing in neurologic consultation regarding st [facility]. She has a history of stroke in the right parieto-occipital region in 2016 for which a definiti ve cause was not found. According to the information at that time, there was suspicion that it could be cardioembolic, and recommendations were made for long-term cardiac monitoring, but the patient is unaware if she actually ever did that. I reviewed the clinic records, and she did see Dr. Kulwant orozco January 20, 2017, and at that time wanted to stay on aspirin and declined any additional workup, a nd there was also concern about her risk of falling and anticoagulation where she had been found to h ave an indication. 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 There is the mos t recent note from Dr. Walter in October of 2017. She was having several falls documented at that time . She was evaluated at that time with her son visiting from [place], and no other additional long-te rm cardiac monitoring was being done at that time. He had also reported she had a lot of cardiac mon itoring in the past, but nothing was specifically identified. After that, I see no additional follow up there. I had seen her in the office in December of 2016. She had seen Dr. Azevedo in the hospital and I saw her in followup. She, again, has not had follow up since that time. On this particular occasion, she came into the hospital on the . She had fallen and she is not s ure exactly what happened, but had trouble getting up and developed some mild rhabdomyolysis. She lynne s subsequently been found to have a subacute stroke in the right cerebellum. She says she has contin ued to have unsteadiness. She has had a carotid ultrasound showing no hemodynamically significant st enosis. Monitoring is not showing any atrial fibrillation. She currently denies any chest pain, pal pitations, or shortness of breath. She is not describing focal numbness or weakness. She is not com plaining of being confused. PAST MEDICAL HISTORY: As outlined above, but additionally has a history of hypertension, hyperlipide annie, hypothyroidism, reflux, some resting tremor, vertigo, osteoarthritis, type 2 diabetes. FAMILY HISTORY: Diabetes, coronary disease. SOCIAL HISTORY: No smoking. No alcohol. She lives alone and uses a walker to ambulate. CURRENT MEDICATIONS: Amitriptyline which she takes at night, is on hold. Aspirin 81 mg daily, Lipit or 40 mg daily, Lovenox for DVT prophylaxis, Synthroid, losartan, primidone on hold which is used for tremor. ALLERGIES: Ciprofloxacin. REVIEW OF SYSTEMS: A 10-point review of systems completed, unremarkable except for that noted above. PHYSICAL EXAM: VITAL SIGNS: Blood pressure is 141/80, pulse of 67, respirations 16, temperature 36. 8. GENERAL: She is well developed, lying in the bed, no acute distress. NECK: Supple with no brui ts or masses. CARDIAC: Regular rate and rhythm. No murmur. EXTREMITIES: No cyanosis or edema. N EUROLOGIC: She is alert and oriented to person, place, time, and general situation. She is amnestic for the exact details of what occurred before she came into the hospital other than knowing she fell . She is not sure exactly what happened. Pupils are 2 mm and reactive. Extraocular movements intac t. No visual field loss. I cannot view the fundi. Normal facial sensation and strength. Palate el evates symmetrically and tongue protrudes midline. Hearing is preserved. MOTOR: Normal muscle bulk and tone for age. She has some mild proximal weakness, but it is not asymmetric. The sensation is intact in the extremities. She is not ataxic on [id number]. She is not steady to ambulate witho ut her walker safely. Reflexes 1+. LABORATORY: Studies here show unremarkable CBC and normal INR. Chemistries generally have been norm al with her total cholesterol of 134, LDL of 64. Urinalysis showed 5-10 white cells when she came in . Other diagnostic studies: MRI as outlined. Head CT and carotid ultrasound. She has the old stroke in the right parieto-occipital region, and then the new ischemic change in the right cerebellum. Thi s affects the right cerebellar peduncle predominantly and midline anterior cerebellum. IMPRESSION: Total unit time of 70 minutes. The patient had an NIH Stroke Scale of 0, but has unstea diness despite this. There is evidence of subacute right cerebellar infarct with possible considerat ion again of unrecognized embolism, but small-vessel disease less likely. We do not see large vessel stenoses. She previously had a workup in 2017 showing a right M2 occlusion where we had concerns th ere might be a cardiac source, but we have not identified one. There is a challenge of safety of use of anticoagulation were a clear indication to be found. I would recommend prolonged court recording monitor ing to see if atrial fibrillation can be assessed, but that can be determined with family input and o utpatient cardiology consultation again, as she was last seen in Cardiology but a year ago. In the s hort term, following recent guideline recommendations, I would like her to take Plavix [address] us aspirin for 21 days, and then, in her case, convert after that timeframe to just Plavix 75 mg promise y for secondary stroke prophylaxis unless we find a clear reason to consider anticoagulation. Furthe r determination of outpatient status will be through physical and occupational therapy to determine s afety, and whether she needs rehab or outpatient care or home care. She can then follow up as an out patient with me as well. /[id number]/MODL
[2018-10-29] MEDS: ATORVASTATIN CALCIUM 40 MG TAB PO SCH (11:20)
[2018-10-29] MEDS: LOSARTAN POTASSIUM 25 MG TAB PO SCH (11:20)
[2018-10-29] MEDS: PANTOPRAZOLE SODIUM 40 MG TAB PO SCH (11:20)
[2018-10-29] MEDS: ASPIRIN 81 MG CHEWABLE TAB PO SCH (11:20)
[2018-10-29] MEDS: ENOXAPARIN 40 MG/0.4 ML SYR SC SCH (11:21)
--- NOTE | 2018-10-29 12:10 | PDMN ---
Medical Necessity Medical necessity: Pt meets IP criteria as of 10/28/18 per MD and MCG MG-N ( Neurology GRG); los > 2 mn for ongoing tx and management of new onset generalized weakness and frequent falls, pt fell and was too weak to get up for an unknown period of time, mild rhabdo with elevated CK and hypokalemia; requiring PT/OT, serial labs, IVF, and further workup. Hx CVA, HTN, DM, hypothyroid, and tremor.
--- NOTE | 2018-10-29 14:03 | ECHO ---
[email or web address] [address] [address] Main: [phone] Echocardiography Examination Transthoracic Name: SOHAIL FISH MR#: [id number] Study Date: 10/29/2018 Study Time: 11:36 AM Date of : 1940 Age: 78 year(s) Height: 162.6 cm (64 in.) Weight: 77.11 kg (170 lb.) BSA: 1.83 m2 Gender: Female Examination: Echo Contrast: Image Quality: Adequate Rhythm: Heart Rate: BP: 138 mmHg/93 mmHg Indication: Subacute CVA Procedure Staff Referring Physician: Refinery Operator Helper Cracking Unit: Lisbeth Wilder RDCS Reading Physician: Madhav Ridley MD Requesting Provider: Indication: Subacute CVA Measurements Chambers AV/MV Label Value Normal Value Label Value Normal Value EF lower range (%) 65 % AV PGmean 2 mmHg EF upper range (%) 70 % MV A Vmax 0.69 m/s IVSd, 2D 0.8 cm (0.6cm - 1.1cm) MV E' lateral 0.08 m/s LVDd, 2D 4 cm (3.9cm - 5.3cm) MV E' mean 0.07 m/s LVDs, 2D 2.6 cm (2.1cm - 4cm) MV E' septal 0.06 m/s LVEF, 2D 66 % (54% - 74%) MV E Vmax 0.77 m/s LVEF, BP 65 % (55% - 70%) MV E/A 1.12 LVPWd, 2D 0.8 cm MV E/E' lateral 10.3 LA Volume, BP 49 ml (22ml - 52ml) MV E/E' mean 11 LADs, 2D 4 cm (2.7cm - 3.8cm) MV E/E' septal 12.7 (0.45 - 1.25) LAESV index, BP 26.8 ml/m2 TV/PV Additional Vessels Label Value Normal Value Label Value Normal Value RA Pressure 5 mmHg AoAsc 3.4 cm RVSP 29 mmHg AoRoot, MM 3.2 cm (2.2cm - 3.7cm) TR Pmax 24 mmHg TR Vmax 2.46 m/s Conclusions Patient: SOHAIL FISH Study Date: 10/29/2018 Page 1 of 3 11:36 AM Left Ventricle: Left ventricle is normal in size. EF range is estimated at 65 % - 70 %. Right Ventricle: Right ventricular systolic function is normal. Left Atrium: The left atrium is normal in size. IAS: Normal appearing atrial septum. Right Atrium: The right atrium is normal in size. Tricuspid Valve: Pulmonary artery pressure normal. Pericardium: A pericardial fat pad is present. Findings Left Ventricle: Left ventricle is normal in size. Normal global systolic left ventricular function. The ejection fraction, measured by Simpsons method, is 65 %. EF range is estimated at 65 % - 70 %. Left ventricle wall thickness is normal. There are no regional wall motion abnormalities. Left ventricular diastolic function parameters are normal. IVS: The septum is intact. Right Ventricle: Normal size right ventricle. Right ventricular wall thickness is normal. Right ventricular systolic function is normal. Left Atrium: The left atrium is normal in size. IAS: Normal appearing atrial septum. Right Atrium: The right atrium is normal in size. Mitral Valve: Mitral valve appears structurally normal. Trivial mitral regurgitation. No mitral valve stenosis. Aortic Valve: Aortic leaflets exhibit normal cuspal separation. Trivial aortic regurgitation is present. There is no aortic stenosis. The aortic valve is trileaflet. Tricuspid Valve: Tricuspid valve leaflets are normal in appearance and function. Mild tricuspid regurgitation. No tricuspid valve stenosis. Right Ventricular systolic pressure is measured at 29 mmHg. Pulmonary artery pressure normal. Pulmonic Valve: Pulmonic leaflets exhibit normal cuspal separation. Trivial pulmonic valve regurgitation is present. There is no pulmonic valve stenosis. Aorta: The aorta is normal. The aortic root size in M-mode measures 3.2 cm. The ascending aorta measures 3.4 cm. Aorta Measurements AoRoot, MM is 3.2 cm. Pulmonary Artery: The pulmonary artery morphology appears normal. IVC: Patient: SOHAIL FISH Study Date: 10/29/2018 Page 2 of 3 11:36 AM The inferior vena cava is normal in size and course. Pericardium: A pericardial fat pad is present. No pericardial effusion. No pleural effusion present. Exam Details Procedure Ordered: Echo Procedure Status: Routine study Image Quality: Adequate Facility Location: Cardiac Echo 1 (No Signature Object) Patient: SOHAIL FISH Study Date: 10/29/2018 Page 3 of 3 11:36 AM [id number]
--- NOTE | 2018-10-29 15:24 | PDIAF ---
- Diagnosis Diagnosis: Subacute CVA Code Status: Full Code - Medication Management Discharge Medications: electronically signed and located in the Home Medication List. - Orders Services needed: Physical Therapy, Occupational Therapy Diet Recommendation: ADA 2000 consistent carb Diet Texture: Regular Texture Diet Additional Instructions: Continue aspirin and plavix both until 11/19/2018 and then continue with Plavix alone thereafter. - Follow Up Care Current Providers and Referrals: Zane Jurado MD [[facility] Primary Care Provider] - NONE *PRIMARY CARE P,. [Primary Care Provider] - As per Instructions
--- NOTE | 2018-10-29 15:27 | ASMTLACE ---
LACE Length of stay for Answers: 2 days current admission Acuity / Level of Answers: Yes Care: Did the patient have an inpatient admission? Comorbidities - select Answers: Cerebrovascular disease all that apply (CVA, TIA, aneurysms, vasc ular dementia) Coronary Artery Disease Diabetes (uncontrolled or controlled) History of falls Other Notes: HTN, Vertigo, GERD, Score: 13 Date Signed: 10/29/2018 03:26 PM Electronically Signed By:KETTY Ortez
--- NOTE | 2018-10-29 15:31 | ASMTCMCOM ---
CM Note CM Note Notes: Pt medically stable for d/c with [facility] and family supervision. Pt sybil Devries to transport home. Date Signed: 10/29/2018 03:29 PM Electronically Signed By:KETTY Ortez
[2018-10-29 16:08] VITALS: BP 145/98
--- NOTE | 2018-10-29 16:24 | GDS ---
[f rep st] DISCHARGE SUMMARY DISCHARGE DIAGNOSES: 1. Subacute cerebellar cerebrovascular accident. 2. Gait instability. HISTORY OF PRESENT ILLNESS: The patient is a pleasant 78-year-old female with a past medical history of prior CVA, hypertension and diabetes mellitus type 2, who presented to the [facility] Emergency Room on 10/26/2018, with complaints of lower extremity weakness and being found down. She reports that she has been having, over the past 3 weeks, weakness of her lower extremities and s ome instability. She apparently had a fall at her home and was lying down on the ground. She was un able to get to her medical alert device and was on the ground for approximately 20 hours. Her initia l assessment showed evidence of rhabdomyolysis. She was admitted for IV fluids and therapies. She w as further evaluated with MRI of her brain, which showed evidence of encephalomalacia from prior righ t posterior temporal and parietal CVA on the right. However, it also showed evidence of a subacute i nfarct in the right superior anterior cerebellum. She had an echocardiogram and carotid artery ultra sound for further assessment. These were unremarkable. She has had previously, in 2017, a CT angiog luis carlos of her head and neck with her prior stroke. Neurology was consulted on her case and it was rec ommended to address her anti-platelet therapy to aspirin 81 mg daily along with Plavix 75 mg daily fo r 3 weeks and then adjusting to Plavix alone thereafter. Discussion also took place regarding outpat ient consultation with Cardiology to discuss more prolonged cardiac monitoring to determine if she lynne s any evidence of atrial fibrillation. It is entirely clear if this was done in the past, but her so n recalls that she may have had some monitoring done previously, but did not show any evidence of atr ial fibrillation. Nonetheless, with recurrent evidence of a CVA, it seems reasonable to consider rep eat prolonged monitoring to look for any evidence of paroxysmal atrial fibrillation. Otherwise, the patient did reasonably well with therapy and it was felt that she could return home with home PT and OT. Her son, who is quite active in her care during this hospitalization, was planning on staying wi th her for at least the next 1 week to ensure she transitions successfully. Otherwise, there were no medication changes to her current medical regimen. HOSPITAL COURSE BY PROBLEM: CVA: Subacute cerebellar infarction noted on MRI imaging. I suspect th is did develop within the past month and could have been playing a role with her lower extremity weak ness and imbalance. Tremor: The patient is on primidone for familial tremor. Rhabdomyolysis, resolved without any major electrolyte abnormalities or kidney injury. Urinary tract infection, possible: No definite symptoms to suggest. Her urine culture did grow cassiee rococci and she was on ampicillin during the hospitalization. I do not think she needs antibiotics l eaving the hospital, as there were no clear symptoms to suggest an active urinary tract infection. Hypertension: Controlled during this hospitalization and no changes made. Diabetes mellitus type 2: Metformin was placed on hold, considering IV contrast received during this hospitalization. I recommend that she resume at her prior dose in leaving the hospital. Hypothyroidism: She was continued on levothyroxine. DVT prophylaxis: She was on Lovenox during this hospitalization. Disposition: She will transition back to home with home PT and OT. Of note, her LDL cholesterol was measured during this hospitalization and it was less than 70, measur ing at 64. EXAM: VITAL SIGNS: On the day of discharge, temperature 36.8, blood pressure 138/93, heart rate 66, respirations 12, saturating 95% on room air exam. GENERAL: The patient appeared comfortable, sitti ng in a chair at the bedside, awake, alert, conversant. HEART: Regular rate and rhythm. No murmurs noted. LUNGS: Clear on auscultation with normal respiratory effort. ABDOMEN: Soft, nontender and nondistended. : No Jaramillo catheter in place. EXTREMITIES: No significant pitting edema. SKIN: No concerning skin rashes noted. NEURO: No facial asymmetry or extremity weakness appreciated. NOTABLE STUDIES: LDL 64, sodium 140, potassium 3.6, chloride 108, bicarb 26, BUN 10, creatinine 0.6, glucose of 92. Glucose readings in the hospital read 96, 82, 78, 107 and 84. IMAGING: As detailed in the HPI. DISCHARGE MEDICATIONS: 1. Aspirin 81 mg daily. 2. Plavix 75 mg daily. 3. Atorvastatin 40 mg daily. 4. Metformin 500 mg twice a day. 5. Losartan 25 mg daily. 6. Primidone 75 mg daily. 7. Levothyroxine 88 mcg daily. 8. Elavil 10 mg nightly. 9. Lasix 20 mg daily as needed. DISCHARGE INSTRUCTIONS: A followup visit with her primary care provider, Dr. Jurado, is recommended in 1 to 2 weeks' time to reassess this hospitalization and discuss referral to Cardiology for consid eration of prolonged cardiac monitoring to look for atrial fibrillation in light of her stroke histor y. She has also been instructed to continue with aspirin and Plavix for the next 3 weeks as recommen ded by Neurology, and then continue with Plavix alone at 75 mg daily thereafter. Forty minutes of time dedicated to discharge efforts. /[id number]/MODL
--- NOTE | 2018-10-30 10:06 | ASDISCHSUM ---
Discharge Information Plan Status:Home with Home Health Medically Cleared to Leave: Discharge Date:10/29/2018 05:14 PM CM D/C Disposition: ADT D/C Disposition:Home Health Service Projected Discharge Date:10/29/2018 11:00 AM Transportation at D/C: Discharge Delay Reason: Follow-Up Date:10/29/2018 11:00 AM Discharge Slot: Final Diagnosis: Placement Information Referral Type:*Home Health Care Services Referral ID:[id number] Provider Name:[facility] Address 1:[address] Address 2: City:[place] Selection Factors: State:[place] Patient Contact Information Contact Name:MARY KAY Relationship:Sister Address: City: [facility] Phone: State/Zip Code: Email: Financial Information Financial Class:Medicare Primary Plan Desc:MEDICARE INPATIENT Primary Plan Number:[id number] Secondary Plan Desc:MED[place] Secondary Plan Number:[id number] Assessment Information [facility] CM Progress Note CM Note CM Note Notes: Pt's Chart reviewed for Discharge. Pt is an 78yr old adm with generalized weakness and Rhabdomylysis. Pt history CVA w rt side weakness, HTN, Lt hip replacement. and DM. Pt with tremors so an MRI was ordered. Pt lives alone at [facility] in a single level. Her Son Franky ([phone]) lives in [facility]. Attempted to contact son but he did not answer.PT & OT recommend SNF. CM will attempt to contact Son with Pt to discuss SNF option. PLAN:TBD Date Signed: 10/27/2018 04:22 PM Electronically Signed By:Pascale Bah [facility] Length of stay for Answers: 2 days current admission Acuity / Level of Answers: Yes Care: Did the patient have an inpatient admission? Comorbidities - select Answers: Cerebrovascular disease all that apply (CVA, TIA, aneurysms, vasc ular dementia) Coronary Artery Disease Diabetes (uncontrolled or controlled) History of falls Other Notes: HTN, Vertigo, GERD, Score: 13 Date Signed: 10/29/2018 03:26 PM Electronically Signed By:KETTY Ortez [facility] CM Progress Note CM Note CM Note Notes: Met with Pt and sybil Devries to discussed discharge planning. They are aware PT/OT both recommend SNF for rehab but Pt is declining and would rather go home with [facility]. Son will be staying with her for a week, then another family member will stay the second week. CADEN Chamberlain & Dr Cruz notified. CM available for needs. PLAN: Likely Home w [facility] and family help Date Signed: 10/28/2018 03:52 PM Electronically Signed By:Pascale Bah [facility] CM Progress Note CM Note CM Note Notes: Pt medically stable for d/c with [facility] and family supervision. Pt sybil Devries to transport home. Date Signed: 10/29/2018 03:29 PM Electronically Signed By:KETTY Ortez Intervention Information
--- NOTE | 2018-11-01 08:50 | CPEKG ---
Test Reason : OPEN Blood Pressure : / mmHG Vent. Rate : 071 BPM Atrial Rate : 072 BPM P-R Int : 141 ms QRS Dur : 095 ms QT Int : 510 ms P-R-T Axes : 050 086 -84 degrees QTc Int : 555 ms Normal sinus rhythm Borderline right axis deviation Nonspecific T abnormalities, diffuse leads Prolonged QT interval Confirmed by Jorge Alberto Tee ([id number]) on 11/01/2018 8:50:00 AM Referred By: Adrián Ramos Confirmed By:Jorge Alberto Tee
== END 2018-10-29 17:14 | disposition home health service (06) | DRG 65 ==
LOC: EDUNIT# → F2W 16:29 → OBSVTOIN 10-28 12:03 → F3N 10-28 18:38
PROVIDERS: ADMIT Internal Medicine; ATTEND Internal Medicine
DX: I63.541 Cerebral infarction due to unspecified occlusion or stenosis of right cerebellar artery (principal); R53.1 Weakness; M62.82 Rhabdomyolysis; E87.6 Hypokalemia; R82.71 Bacteriuria; I69.351 Hemiplegia and hemiparesis following cerebral infarction affecting right dominant side; I10 Essential (primary) hypertension; E11.9 Type 2 diabetes mellitus without complications; G25.0 Essential tremor; E03.9 Hypothyroidism, unspecified; E78.5 Hyperlipidemia, unspecified; K21.9 Gastro-esophageal reflux disease without esophagitis; Z96.642 Presence of left artificial hip joint
CPT/HCPCS: 92523-GN; 96365; 97116-GP; 97161-GP; 97166-GO; 97530-GO; 97530-GP; 97535-GO; A9585; G0378; J0290; J0696; J1650

== ENCOUNTER → 2019-01-09 | Outpatient (CLI) | payer OTHER, MEDICAID | LOC: BMCIMAGING 13:50 ==